=== PATIENT | male | born 1985 | race Hispanic/Latino ===

== ENCOUNTER 2021-09-04 14:07 | Inpatient (IN) | payer SELFPAY ==
[2021-09-04] MEDS ORDERED: INSULIN REGULAR, HUMAN 100 UNITS/1 ML IV ONE ×2 (14:24→20:00)
[2021-09-04] MEDS ORDERED: SODIUM CHLORIDE 0.9% 1000 ML 1,000 ML IV ONE ×2 (14:24)
[2021-09-04 15:15] LABS: BUN/Creatinine Ratio 31; Blood Urea Nitrogen 31 mg/dL (9-20); Calcium 8.8 mg/dL (8.4-10.2); Hemolysis Index 9
[2021-09-04 15:30] LABS: Basophils # (Auto) 0.1 K/mm3 (0.0-0.1); Basophils % (Auto) 0.7 % (0.0-1.8); Eosinophils % (Auto) 0.2 % (0.0-4.3); Lymphocytes # (Auto) 0.9 K/mm3 (1.2-5.4); Lymphocytes % (Auto) 8.8 % (13.4-35.0); Mean Corpuscular HGB Conc 30 % (32-34); Mean Corpuscular Volume 87 fl (84-94); Monocytes # (Auto) 0.7 K/mm3 (0.0-0.8); Monocytes % (Auto) 6.3 % (0.0-7.3); Platelet Count 345 K/mm3 (140-440); Red Blood Count 4.68 M/mm3 (3.65-5.03); Red Cell Distribution Width 15.9 % (13.2-15.2)
[2021-09-04 15:33] LABS: Hematocrit 40.8 % (35.5-45.6); Hemoglobin 12.4 gm/dl (11.8-15.2)
[2021-09-04] MEDS ORDERED: INSULIN REGULAR, HUMAN 100 UNITS in SODIUM CHLORIDE 0.9% 99 ML IV SCH ×2 (20:00→22:00)
--- NOTE | 2021-09-04 20:00 | Emergency Department Report ---
ED General Adult HPI - General Chief complaint: Hyperglycemia Stated complaint: HYPERGLYCEMIA PUI?: No Time Seen by Provider: 09/04/21 14:22 Source: patient, EMS Mode of arrival: Stretcher Limitations: No Limitations - History of Present Illness Initial comments: Chief complaint: Elevated blood sugar HPI: This is a 35-year-old male history of insulin-dependent diabetes, CVA residual left-sided paralysis who presents with elevated blood sugar. He has been between several personal care homes. He has been without insulin therapy for several days. He has been in a new personal half-way for 2 days. He has mild nausea. He is thirsty. He was admitted at outside hospital approximately 2 months ago for left ankle wound infection. He denies any pain or discomfort otherwise. He arrived via EMS. Blood sugar greater than 500 prior to arrival according to EMS. -: Gradual, days(s) (Several days without insulin) Severity scale (0 -10): 0 Consistency: constant Improves with: none Worsens with: none Associated Symptoms: other (Nausea thirst) Treatments Prior to Arrival: other (EMS transport) - Related Data Home Medications Medication Instructions Recorded Confirmed Last Taken Insulin Aspart 09/04/21 Unknown Allergies Allergy/AdvReac Type Severity Reaction Status Date / Time No Known Allergies Allergy Unverified 09/04/21 16:37 ED Review of Systems ROS: Stated complaint: HYPERGLYCEMIA Other details as noted in HPI Comment: All other systems reviewed and negative Constitutional: denies: chills, fever, malaise Respiratory: denies: cough, shortness of breath Cardiovascular: denies: chest pain Gastrointestinal: vomiting. denies: abdominal pain Skin: lesions (left ankle ulcer) ED Past Medical Hx - Past Medical History Previous Medical History?: Yes Hx CVA: Yes Hx Diabetes: Yes - Surgical History Past Surgical History?: Yes Additional Surgical History: Ankle surgery - Social History Smoking Status: Former Smoker Substance Use Type: None - Medications Home Medications: Home Medications Medication Instructions Recorded Confirmed Last Taken Type Insulin Aspart 09/04/21 Unknown History ED Physical Exam - General Limitations: No Limitations General appearance: alert, other (Kussmaul respirations) - Head Head exam: Present: atraumatic, normocephalic - Eye Eye exam: Present: normal appearance - ENT ENT exam: Present: mucous membranes moist - Neck Neck exam: Present: normal inspection, full ROM - Respiratory Respiratory exam: Present: normal lung sounds bilaterally, other (Kussmaul respirations). Absent: wheezes, rales, rhonchi - Cardiovascular Cardiovascular Exam: Present: regular rate, normal rhythm, normal heart sounds. Absent: systolic murmur, diastolic murmur, rubs, gallop - GI/Abdominal GI/Abdominal exam: Present: soft, normal bowel sounds. Absent: distended, tenderness, guarding, rebound - Rectal Rectal exam: Present: deferred - Extremities Exam Extremities exam: Present: normal inspection - Neurological Exam Neurological exam: Present: alert, oriented X3 - Psychiatric Psychiatric exam: Present: depressed, flat affect - Skin Skin exam: Present: warm, dry, intact, pallor, other (Bandage left ankle) ED Course Vital Signs 09/04/21 09/04/21 09/04/21 14:22 14:31 14:45 Temperature 98.2 F Pulse Rate 90 86 83 Respiratory 17 16 16 Rate Blood Pressure 114/68 120/70 Blood Pressure 120/70 [Left] O2 Sat by Pulse 100 99 Oximetry 09/04/21 09/04/21 09/04/21 15:00 15:15 15:31 Temperature Pulse Rate 85 81 Respiratory 15 15 15 Rate Blood Pressure 120/70 121/68 Blood Pressure [Left] O2 Sat by Pulse 99 100 100 Oximetry 09/04/21 09/04/21 09/04/21 15:45 16:01 16:15 Temperature Pulse Rate 103 H 86 Respiratory 14 16 14 Rate Blood Pressure 121/69 122/72 105/59 Blood Pressure [Left] O2 Sat by Pulse 100 100 100 Oximetry 09/04/21 09/04/21 09/04/21 16:31 16:45 16:49 Temperature Pulse Rate 94 H 91 H Respiratory 16 16 16 Rate Blood Pressure 97/61 119/73 Blood Pressure [Left] O2 Sat by Pulse 100 99 99 Oximetry 09/04/21 09/04/21 09/04/21 17:01 17:15 17:31 Temperature Pulse Rate 86 84 94 H Respiratory 14 14 17 Rate Blood Pressure 116/66 115/59 116/68 Blood Pressure [Left] O2 Sat by Pulse 100 99 99 Oximetry 09/04/21 09/04/21 09/04/21 17:45 18:01 18:15 Temperature Pulse Rate 86 87 93 H Respiratory 16 14 18 Rate Blood Pressure 106/77 110/69 123/69 Blood Pressure [Left] O2 Sat by Pulse 99 99 99 Oximetry ED Medical Decision Making - Lab Data Result diagrams: 09/04/21 14:44 09/04/21 14:44 - Medical Decision Making Diabetic ketoacidosis due to medication noncompliance no evidence of infection or cardiac insult: Acute kidney injury with hyperkalemia. Hyperkalemia will be addressed with insulin therapy. Normal saline 2 L bolus. Patient received regular insulin IV. Also exam fluid in order. Critical Care Time: Yes Critical care time in (mins) excluding proc time.: 40 Critical care attestation.: If time is entered above; I have spent that time in minutes in the direct care of this critically ill patient, excluding procedure time. 40 minutes of critical care time excluding procedures were used in the care of the patient. I came immediately to the bedside upon patient's arrival. I obtained history from EMS at the bedside. I discussed treatment plan with the nursing team members. I reviewed electronic record. Patient required multiple interventions and reassessments. ED Disposition Clinical Impression: Diabetic ketoacidosis Disposition: ADMITTED INPATIENT Is pt being admited?: Yes Does the pt Need Aspirin: No Condition: Critical
[2021-09-04] MEDS ORDERED: MORPHINE 2 MG/1 ML INJ IV PRN (20:49)
[2021-09-04] MEDS ORDERED: HYDROmorphone 1 MG/1 ML INJ IV PRN (20:49)
[2021-09-04] MEDS ORDERED: ONDANSETRON 4 MG/2 ML INJ IV PRN (20:49)
[2021-09-04] MEDS ORDERED: PROMETHAZINE 25 MG RECT SUPP PR PRN (20:49)
[2021-09-04] MEDS ORDERED: ACETAMINOPHEN 325 MG TAB PO PRN (20:49)
[2021-09-04] MEDS ORDERED: METOCLOPRAMIDE 10 MG/2 ML INJ IV PRN (20:49)
[2021-09-04] MEDS ORDERED: DEXTROSE 50% IN WATER (25GM) 50 ML SYRINGE IV PRN (21:01)
--- NOTE | 2021-09-04 21:11 | History and Physical Report ---
History of Present Illness Date of examination: 09/04/21 Date of admission: 09/04/21 16:47 Chief complaint: High blood glucose levels History of present illness: HPI: This is a 35-year-old male history of insulin-dependent diabetes, CVA residual left-sided paralysis who presents with elevated blood sugar. He has been between several personal care homes. He has been without insulin therapy for several days. He has been in a new personal assisted for 2 days. He has mild nausea. He is thirsty. He was admitted at outside hospital approximately 2 months ago for left ankle wound infection. He denies any pain or discomfort otherwise. He arrived via EMS. Blood sugar greater than 500 prior to arrival according to EMS. -: Gradual, days(s) (Several days without insulin) Severity scale (0 -10): 0 Consistency: constant Improves with: none Worsens with: none Associated Symptoms: other (Nausea thirst) Treatments Prior to Arrival: other (EMS transport) - Related Data Home Medications Medication Instructions Recorded Confirmed Last Taken Insulin Aspart 09/04/21 Unknown Allergies Allergy/AdvReac Type Severity Reaction Status Date / Time No Known Allergies Allergy Unverified 09/04/21 16:37 - Past Medical History Previous Medical History?: Yes Hx CVA: Yes Hx Diabetes: Yes - Surgical History Past Surgical History?: Yes Additional Surgical History: Ankle surgery - Social History Smoking Status: Former Smoker Substance Use Type: None - Medications Home Medications: Home Medications Medication Instructions Recorded Confirmed Last Taken Type Insulin Aspart 09/04/21 Unknown History Review of Systems ROS: Stated complaint: HYPERGLYCEMIA Other details as noted in HPI Comment: All other systems reviewed and negative Constitutional: denies: chills, fever, malaise Respiratory: denies: cough, shortness of breath Cardiovascular: denies: chest pain Gastrointestinal: vomiting. denies: abdominal pain Skin: lesions (left ankle ulcer) Medications and Allergies Allergies Allergy/AdvReac Type Severity Reaction Status Date / Time No Known Allergies Allergy Unverified 09/04/21 16:37 Home Medications Medication Instructions Recorded Confirmed Last Taken Type Insulin Aspart 10 unit 09/04/21 09/03/21 17:00 History Active Meds: Active Medications Insulin Human Regular 100 (units/ Sodium Chloride) 100 mls @ 7 mls/hr IV TITR GIL; Protocol Last Admin: 09/04/21 20:34 Dose: 8 units/hr, 8 mls/hr Documented by: Exam - Constitutional Vitals: Temp Pulse Resp BP Pulse Ox 98.2 F 93 H 18 123/69 99 09/04/21 14:31 09/04/21 18:15 09/04/21 18:15 09/04/21 18:15 09/04/21 18:15 General appearance: Present: no acute distress, well-nourished - EENT Eyes: Present: PERRL ENT: hearing intact, clear oral mucosa - Neck Neck: Present: supple, normal ROM - Respiratory Respiratory effort: normal Respiratory: bilateral: CTA - Cardiovascular Heart Sounds: Present: S1 & S2. Absent: rub, click - Extremities Extremities: pulses symmetrical, No edema Peripheral Pulses: within normal limits - Abdominal General gastrointestinal: Present: soft, non-tender, non-distended, normal bowel sounds Male genitourinary: Present: normal - Integumentary Integumentary: Present: clear, warm, dry - Musculoskeletal Musculoskeletal: gait normal, strength equal bilaterally - Psychiatric Psychiatric: appropriate mood/affect, intact judgment & insight - Neurologic Neurologic: CNII-XII intact, moves all extremities Results - Labs CBC & Chem 7: 09/05/21 05:04 09/06/21 08:33 Labs: Laboratory Last Values WBC 10.5 K/mm3 (4.5-11.0) 09/04/21 14:44 RBC 4.68 M/mm3 (3.65-5.03) 09/04/21 14:44 Hgb 12.4 gm/dl (11.8-15.2) 09/04/21 14:44 Hct 40.8 % (35.5-45.6) 09/04/21 14:44 MCV 87 fl (84-94) 09/04/21 14:44 MCH 27 pg (28-32) L 09/04/21 14:44 MCHC 30 % (32-34) L 09/04/21 14:44 RDW 15.9 % (13.2-15.2) H 09/04/21 14:44 Plt Count 345 K/mm3 (140-440) 09/04/21 14:44 Lymph % (Auto) 8.8 % (13.4-35.0) L 09/04/21 14:44 Price % (Auto) 6.3 % (0.0-7.3) 09/04/21 14:44 Eos % (Auto) 0.2 % (0.0-4.3) 09/04/21 14:44 Baso % (Auto) 0.7 % (0.0-1.8) 09/04/21 14:44 Lymph # (Auto) 0.9 K/mm3 (1.2-5.4) L 09/04/21 14:44 Price # (Auto) 0.7 K/mm3 (0.0-0.8) 09/04/21 14:44 Eos # (Auto) 0.0 K/mm3 (0.0-0.4) 09/04/21 14:44 Baso # (Auto) 0.1 K/mm3 (0.0-0.1) 09/04/21 14:44 Seg Neutrophils % 84.0 % (40.0-70.0) H 09/04/21 14:44 Seg Neutrophils # 8.8 K/mm3 (1.8-7.7) H 09/04/21 14:44 VBG pH 7.091 (7.320-7.420) L* 09/04/21 14:44 Sodium 125 mmol/L (137-145) L 09/04/21 14:44 Potassium 7.2 mmol/L (3.6-5.0) H* 09/04/21 14:44 Chloride 88.2 mmol/L (98-107) L 09/04/21 14:44 Carbon Dioxide 7 mmol/L (22-30) L* 09/04/21 14:44 Anion Gap 37 mmol/L 09/04/21 14:44 BUN 31 mg/dL (9-20) H 09/04/21 14:44 Creatinine 1.0 mg/dL (0.8-1.3) 09/04/21 14:44 Estimated GFR > 60 ml/min 09/04/21 14:44 BUN/Creatinine Ratio 31 % 09/04/21 14:44 Glucose 701 mg/dL (75-100) H* 09/04/21 14:44 POC Glucose 526 mg/dL (70-105) H 09/04/21 20:33 Calcium 8.8 mg/dL (8.4-10.2) 09/04/21 14:44 Phosphorus 4.80 mg/dL (2.5-4.5) H 09/04/21 14:44 Magnesium 2.10 mg/dL (1.7-2.3) 09/04/21 14:44 Short CBC 09/04/21 09/05/21 Range/Units 14:44 05:04 WBC 10.5 6.7 (4.5-11.0) K/mm3 Hgb 12.4 11.8 (11.8-15.2) gm/dl Hct 40.8 36.8 (35.5-45.6) % Plt Count 345 374 (140-440) K/mm3 BMP 09/04/21 09/04/21 09/05/21 14:44 23:25 05:04 Sodium 125 L 134 L D 136 L Potassium 7.2 H* 5.0 D 4.9 Chloride 88.2 L 100.7 106.3 Carbon Dioxide 7 L* 6 L* 16 L D BUN 31 H 29 H 21 H Creatinine 1.0 0.9 0.8 Glucose 701 H* 374 H 225 H Calcium 8.8 9.0 8.9 Liver Function 09/05/21 Range/Units 05:04 Total Bilirubin 0.20 (0.1-1.2) mg/dL AST 48 H (5-40) units/L ALT 159 H (7-56) units/L Alkaline Phosphatase 164 H (35-129) units/L Albumin 4.2 (3.9-5) g/dL Assessment and Plan Assessment and plan: The high probability OF a clinically significant sudden or life-threatening d eterioration of the cardiorespiratory system and endocrine system required my full and direct attention, intervention and postoperative management. The aggregate medical care time was 40 minutes. The time is in addition to time spent performing reported procedures but includes the followin: Data review and interpretation 2: Patient assessment and monitoring of vital signs 3: Documentation 4:: Medication orders and management Advance Directives: Yes (Full code) VTE prophylaxis?: Chemical Plan of care discussed with patient/family: Yes - Patient Problems (1) Diabetic ketoacidosis Current Visit: Yes Status: Acute Qualifiers: Diabetes mellitus type: other specified (including NEIL) Plan to address problem: DKA protocol IV insulin IV fluids Education about diabetes and management (2) Metabolic acidosis Current Visit: Yes Status: Acute Plan to address problem: IV fluids Elevated bicarb as necessary (3) Hyperkalemia Current Visit: Yes Status: Acute Plan to address problem: IV insulin for now Calcium gluconate IV IV insulin should correct the potassium levels (4) DVT prophylaxis Current Visit: Yes Status: Acute Plan to address problem: On heparin heparin and GI prophylaxis
[2021-09-04] MEDS ORDERED: D5W/0.45% NACL/KCL 20 MEQ 20 MEQ/1,000 ML BAG IV SCH (22:00)
[2021-09-04] MEDS ORDERED: POTASSIUM CHLORIDE 10 MEQ 10 MEQ/100 ML BAG IV SCH (22:00)
[2021-09-04] MEDS: FAMOTIDINE 20 MG/2 ML INJ IV SCH (22:29)
[2021-09-04] MEDS: HEPARIN 5,000 UNIT/1 ML VIAL SUB-Q SCH (22:29)
[2021-09-04 23:59] LABS: BUN/Creatinine Ratio 32; Blood Urea Nitrogen 29 mg/dL (9-20); Hemolysis Index 2
[2021-09-05] MEDS ORDERED: SODIUM CHLORIDE 0.9% 1000 ML 1,000 ML IV SCH (00:45)
[2021-09-05] MEDS ORDERED: SODIUM BICARB 8.4% 50 MEQ/50 ML SYRINGE IV ONE (00:45)
[2021-09-05 05:22] LABS: Basophils % (Auto) 0.3 % (0.0-1.8); Eosinophils % (Auto) 0.3 % (0.0-4.3); Hematocrit 36.8 % (35.5-45.6); Hemoglobin 11.8 gm/dl (11.8-15.2); Lymphocytes # (Auto) 1.9 K/mm3 (1.2-5.4); Lymphocytes % (Auto) 28.3 % (13.4-35.0); Mean Corpuscular HGB Conc 32 % (32-34); Mean Corpuscular Volume 80 fl (84-94); Monocytes # (Auto) 0.5 K/mm3 (0.0-0.8); Monocytes % (Auto) 7.3 % (0.0-7.3); Platelet Count 374 K/mm3 (140-440); Red Blood Count 4.62 M/mm3 (3.65-5.03); Red Cell Distribution Width 14.9 % (13.2-15.2)
[2021-09-05 05:44] LABS: Alanine Aminotransferase 159 units/L (7-56); Albumin 4.2 g/dL (3.9-5); BUN/Creatinine Ratio 26; Blood Urea Nitrogen 21 mg/dL (9-20); Calcium 8.9 mg/dL (8.4-10.2); Hemolysis Index 2
--- NOTE | 2021-09-05 10:14 | Progress Note ---
Assessment and Plan - Patient Problems (1) Diabetic ketoacidosis Current Visit: Yes Status: Acute Qualifiers: Diabetes mellitus type: other specified (including NEIL) Plan to address problem: DKA protocol IV insulin IV fluids Education about diabetes and management Patient started on Novolin 70/30 at 25 units twice a day (2) Metabolic acidosis Current Visit: Yes Status: Acute Plan to address problem: IV fluids Elevated bicarb as necessary (3) Hyperkalemia Current Visit: Yes Status: Acute Plan to address problem: IV insulin for now Calcium gluconate IV IV insulin should correct the potassium levels (4) DVT prophylaxis Current Visit: Yes Status: Acute Plan to address problem: On heparin heparin and GI prophylaxis Subjective Date of service: 09/05/21 Principal diagnosis: DKA Interval history: Patient admitted for DKA Glucose levels are improved Patient downgraded to medical floor Objective - Constitutional Vitals: Vital Signs - 12hr 09/04/21 09/04/21 09/04/21 22:15 22:31 22:45 Pulse Rate 92 H 85 85 Respiratory 15 15 14 Rate Blood Pressure 105/67 105/67 105/67 O2 Sat by Pulse 100 100 100 Oximetry 09/04/21 09/04/21 09/04/21 23:01 23:15 23:30 Pulse Rate 83 93 H 85 Respiratory 13 17 15 Rate Blood Pressure 97/60 105/67 105/67 O2 Sat by Pulse 100 100 100 Oximetry 09/04/21 09/05/21 09/05/21 23:45 00:01 00:15 Pulse Rate 81 80 77 Respiratory 13 14 14 Rate Blood Pressure 97/60 100/58 100/58 O2 Sat by Pulse 100 100 100 Oximetry 09/05/21 09/05/21 09/05/21 00:31 00:45 01:01 Pulse Rate 79 79 80 Respiratory 15 15 15 Rate Blood Pressure 100/58 100/58 103/64 O2 Sat by Pulse 100 100 100 Oximetry 09/05/21 09/05/21 09/05/21 01:15 01:31 01:45 Pulse Rate 78 89 80 Respiratory 14 18 14 Rate Blood Pressure 103/64 103/64 103/64 O2 Sat by Pulse 100 100 100 Oximetry 09/05/21 09/05/21 09/05/21 02:01 02:15 02:31 Pulse Rate 81 80 85 Respiratory 13 15 15 Rate Blood Pressure 107/70 107/70 107/70 O2 Sat by Pulse 100 100 99 Oximetry 09/05/21 09/05/21 09/05/21 02:45 03:01 03:15 Pulse Rate 80 80 78 Respiratory 14 16 14 Rate Blood Pressure 107/70 108/68 107/70 O2 Sat by Pulse 100 99 99 Oximetry 09/05/21 09/05/21 09/05/21 03:31 03:45 04:01 Pulse Rate 79 91 H 79 Respiratory 15 13 15 Rate Blood Pressure 107/70 107/70 104/68 O2 Sat by Pulse 99 Oximetry 09/05/21 09/05/21 09/05/21 04:15 04:31 04:45 Pulse Rate 77 81 79 Respiratory 15 15 15 Rate Blood Pressure 104/68 104/68 104/68 O2 Sat by Pulse Oximetry 09/05/21 09/05/21 09/05/21 05:01 05:15 05:31 Pulse Rate 89 79 79 Respiratory 13 15 15 Rate Blood Pressure 104/68 104/68 104/68 O2 Sat by Pulse 100 100 Oximetry 09/05/21 09/05/21 09/05/21 05:45 06:01 06:15 Pulse Rate 79 84 78 Respiratory 15 15 15 Rate Blood Pressure 104/68 107/68 107/68 O2 Sat by Pulse 100 100 100 Oximetry 09/05/21 09/05/21 09/05/21 06:31 06:45 07:01 Pulse Rate 79 76 75 Respiratory 15 14 14 Rate Blood Pressure 107/68 107/68 107/68 O2 Sat by Pulse 100 100 100 Oximetry 09/05/21 07:15 Pulse Rate 75 Respiratory 14 Rate Blood Pressure 107/68 O2 Sat by Pulse 100 Oximetry General appearance: Present: no acute distress, well-nourished - EENT Eyes: PERRL, EOM intact ENT: hearing intact, clear oral mucosa Ears: bilateral: normal - Neck Neck: supple, normal ROM - Respiratory Respiratory effort: normal Respiratory: bilateral: CTA - Breasts Breasts: normal - Cardiovascular Heart rate: 78 Rhythm: regular Heart Sounds: Present: S1 & S2. Absent: gallop, rub Extremities: pulses intact, No edema, normal color, Full ROM - Gastrointestinal General gastrointestinal: Present: soft, non-tender, non-distended, normal bowel sounds - Genitourinary Male genitourinary: normal - Integumentary Integumentary: clear, warm, dry - Musculoskeletal Musculoskeletal: 1, strength equal bilaterally - Neurologic Neurologic: moves all extremities - Psychiatric Psychiatric: memory intact, appropriate mood/affect, intact judgment & insight - Labs CBC & Chem 7: 09/05/21 05:04 09/06/21 08:33 Labs: Abnormal lab results 09/04/21 09/04/21 09/04/21 Range/Units 14:24 14:44 14:44 MCV (84-94) fl MCH 27 L (28-32) pg MCHC 30 L (32-34) % RDW 15.9 H (13.2-15.2) % Lymph % (Auto) 8.8 L (13.4-35.0) % Lymph # (Auto) 0.9 L (1.2-5.4) K/mm3 Seg Neutrophils % 84.0 H (40.0-70.0) % Seg Neutrophils # 8.8 H (1.8-7.7) K/mm3 VBG pH (7.320-7.420) Sodium 125 L (137-145) mmol/L Potassium 7.2 H* (3.6-5.0) mmol/L Chloride 88.2 L (98-107) mmol/L Carbon Dioxide 7 L* (22-30) mmol/L BUN 31 H (9-20) mg/dL Glucose 701 H* (75-100) mg/dL POC Glucose 572 H (70-105) mg/dL Hemoglobin A1c (4-6) % Phosphorus (2.5-4.5) mg/dL AST (5-40) units/L ALT (7-56) units/L Alkaline Phosphatase (35-129) units/L 09/04/21 09/04/21 09/04/21 Range/Units 14:44 14:44 20:03 MCV (84-94) fl MCH (28-32) pg MCHC (32-34) % RDW (13.2-15.2) % Lymph % (Auto) (13.4-35.0) % Lymph # (Auto) (1.2-5.4) K/mm3 Seg Neutrophils % (40.0-70.0) % Seg Neutrophils # (1.8-7.7) K/mm3 VBG pH 7.091 L* (7.320-7.420) Sodium (137-145) mmol/L Potassium (3.6-5.0) mmol/L Chloride (98-107) mmol/L Carbon Dioxide (22-30) mmol/L BUN (9-20) mg/dL Glucose (75-100) mg/dL POC Glucose 535 H (70-105) mg/dL Hemoglobin A1c (4-6) % Phosphorus 4.80 H (2.5-4.5) mg/dL AST (5-40) units/L ALT (7-56) units/L Alkaline Phosphatase (35-129) units/L 09/04/21 09/04/21 09/04/21 Range/Units 20:33 22:02 23:25 MCV (84-94) fl MCH (28-32) pg MCHC (32-34) % RDW (13.2-15.2) % Lymph % (Auto) (13.4-35.0) % Lymph # (Auto) (1.2-5.4) K/mm3 Seg Neutrophils % (40.0-70.0) % Seg Neutrophils # (1.8-7.7) K/mm3 VBG pH (7.320-7.420) Sodium 134 L D (137-145) mmol/L Potassium (3.6-5.0) mmol/L Chloride (98-107) mmol/L Carbon Dioxide 6 L* (22-30) mmol/L BUN 29 H (9-20) mg/dL Glucose 374 H (75-100) mg/dL POC Glucose 526 H 381 H (70-105) mg/dL Hemoglobin A1c (4-6) % Phosphorus (2.5-4.5) mg/dL AST (5-40) units/L ALT (7-56) units/L Alkaline Phosphatase (35-129) units/L 09/05/21 09/05/21 09/05/21 Range/Units 00:01 01:16 02:23 MCV (84-94) fl MCH (28-32) pg MCHC (32-34) % RDW (13.2-15.2) % Lymph % (Auto) (13.4-35.0) % Lymph # (Auto) (1.2-5.4) K/mm3 Seg Neutrophils % (40.0-70.0) % Seg Neutrophils # (1.8-7.7) K/mm3 VBG pH (7.320-7.420) Sodium (137-145) mmol/L Potassium (3.6-5.0) mmol/L Chloride (98-107) mmol/L Carbon Dioxide (22-30) mmol/L BUN (9-20) mg/dL Glucose (75-100) mg/dL POC Glucose 350 H 291 H 234 H (70-105) mg/dL Hemoglobin A1c (4-6) % Phosphorus (2.5-4.5) mg/dL AST (5-40) units/L ALT (7-56) units/L Alkaline Phosphatase (35-129) units/L 09/05/21 09/05/21 09/05/21 Range/Units 03:41 05:02 05:04 MCV 80 L (84-94) fl MCH 26 L (28-32) pg MCHC (32-34) % RDW (13.2-15.2) % Lymph % (Auto) (13.4-35.0) % Lymph # (Auto) (1.2-5.4) K/mm3 Seg Neutrophils % (40.0-70.0) % Seg Neutrophils # (1.8-7.7) K/mm3 VBG pH (7.320-7.420) Sodium (137-145) mmol/L Potassium (3.6-5.0) mmol/L Chloride (98-107) mmol/L Carbon Dioxide (22-30) mmol/L BUN (9-20) mg/dL Glucose (75-100) mg/dL POC Glucose 237 H 198 H (70-105) mg/dL Hemoglobin A1c (4-6) % Phosphorus (2.5-4.5) mg/dL AST (5-40) units/L ALT (7-56) units/L Alkaline Phosphatase (35-129) units/L 09/05/21 09/05/21 09/05/21 Range/Units 05:04 05:04 06:02 MCV (84-94) fl MCH (28-32) pg MCHC (32-34) % RDW (13.2-15.2) % Lymph % (Auto) (13.4-35.0) % Lymph # (Auto) (1.2-5.4) K/mm3 Seg Neutrophils % (40.0-70.0) % Seg Neutrophils # (1.8-7.7) K/mm3 VBG pH (7.320-7.420) Sodium 136 L (137-145) mmol/L Potassium (3.6-5.0) mmol/L Chloride (98-107) mmol/L Carbon Dioxide 16 L D (22-30) mmol/L BUN 21 H (9-20) mg/dL Glucose 225 H (75-100) mg/dL POC Glucose 188 H (70-105) mg/dL Hemoglobin A1c 11.1 H (4-6) % Phosphorus (2.5-4.5) mg/dL AST 48 H (5-40) units/L ALT 159 H (7-56) units/L Alkaline Phosphatase 164 H (35-129) units/L 09/05/21 09/05/21 Range/Units 06:58 09:54 MCV (84-94) fl MCH (28-32) pg MCHC (32-34) % RDW (13.2-15.2) % Lymph % (Auto) (13.4-35.0) % Lymph # (Auto) (1.2-5.4) K/mm3 Seg Neutrophils % (40.0-70.0) % Seg Neutrophils # (1.8-7.7) K/mm3 VBG pH (7.320-7.420) Sodium (137-145) mmol/L Potassium (3.6-5.0) mmol/L Chloride (98-107) mmol/L Carbon Dioxide (22-30) mmol/L BUN (9-20) mg/dL Glucose (75-100) mg/dL POC Glucose 169 H 121 H (70-105) mg/dL Hemoglobin A1c (4-6) % Phosphorus (2.5-4.5) mg/dL AST (5-40) units/L ALT (7-56) units/L Alkaline Phosphatase (35-129) units/L
[2021-09-05] MEDS: HEPARIN 5,000 UNIT/1 ML VIAL SUB-Q SCH (10:43)
[2021-09-05] MEDS: FAMOTIDINE 20 MG/2 ML INJ IV SCH ×2 (10:44→22:00)
--- NOTE | 2021-09-05 12:30 | Event Note ---
Date: 09/05/21 Anion Gap is closed, stable for downgrade to floor. No current need for ICU.
[2021-09-05] MEDS ORDERED: DEXTROSE 50% IN WATER (25GM) 50 ML SYRINGE IV PRN (19:07)
[2021-09-06] MEDS: INSULIN LISPRO 100 UNIT/ML SUB-Q SCH ×6 (02:50→21:51)
[2021-09-06] MEDS ORDERED: INSULIN LISPRO 100 UNIT/ML SUB-Q ONE (09:45)
[2021-09-06] MEDS: HEPARIN 5,000 UNIT/1 ML VIAL SUB-Q SCH ×2 (10:00→21:43)
[2021-09-06] MEDS: FAMOTIDINE 20 MG/2 ML INJ IV SCH (10:06)
[2021-09-06] MEDS ORDERED: PNEUMOCOCCAL 23 Valent 0.5 ML VIAL IM ONE (12:00)
[2021-09-06] MEDS ORDERED: PANTOPRAZOLE 40 MG INJ IV SCH (13:00)
[2021-09-06] MEDS: INSULIN NPH/REGULAR 70/30 INJ SUB-Q SCH ×2 (13:00→17:00)
--- NOTE | 2021-09-06 14:15 | Progress Note ---
Assessment and Plan - Patient Problems (1) Acute gastritis Current Visit: Yes Status: Acute Qualifiers: Gastritis bleeding: with bleeding Plan to address problem: Patient started on IV Protonix GI consult requested May need EGD (2) Diabetic ketoacidosis Current Visit: Yes Status: Acute Qualifiers: Diabetes mellitus type: other specified (including NEIL) Plan to address problem: DKA protocol IV insulin IV fluids Education about diabetes and management Patient started on Novolin 70/30 at 25 units twice a day (3) Metabolic acidosis Current Visit: Yes Status: Acute Plan to address problem: IV fluids Elevated bicarb as necessary (4) Hyperkalemia Current Visit: Yes Status: Acute Plan to address problem: Hyperkalemia corrected (5) DVT prophylaxis Current Visit: Yes Status: Acute Plan to address problem: On heparin and GI prophylaxis Subjective Date of service: 09/06/21 Principal diagnosis: DKA Interval history: Patient admitted for DKA Glucose levels are improved Patient downgraded to medical floor 09/06/2021 Patient is coffee-ground emesis today Patient started on IV Protonix GI consult requested Objective - Constitutional Vitals: Vital Signs - 12hr 09/06/21 09/06/21 09/06/21 04:09 05:49 11:00 Temperature 97.4 F L 98 F Pulse Rate 106 H 106 H Respiratory 18 18 Rate Blood Pressure 109/70 Blood Pressure 106/67 [Left] O2 Sat by Pulse 99 99 Oximetry General appearance: Present: no acute distress, well-nourished - EENT Eyes: PERRL, EOM intact ENT: hearing intact, clear oral mucosa Ears: bilateral: normal - Neck Neck: supple, normal ROM - Respiratory Respiratory effort: normal Respiratory: bilateral: CTA - Breasts Breasts: normal - Cardiovascular Heart rate: 78 Rhythm: regular Heart Sounds: Present: S1 & S2. Absent: gallop, rub Extremities: pulses intact, No edema, normal color, Full ROM - Gastrointestinal General gastrointestinal: Present: soft, non-tender, non-distended, normal bowel sounds - Genitourinary Male genitourinary: normal - Integumentary Integumentary: clear, warm, dry - Musculoskeletal Musculoskeletal: 1, strength equal bilaterally - Neurologic Neurologic: moves all extremities - Psychiatric Psychiatric: memory intact, appropriate mood/affect, intact judgment & insight - Labs CBC & Chem 7: 09/05/21 05:04 09/06/21 08:33 Labs: Abnormal lab results 09/06/21 09/06/21 09/06/21 Range/Units 00:36 07:26 08:33 Glucose 574 H* (75-100) mg/dL POC Glucose 399 H 531 H (70-105) mg/dL 09/06/21 Range/Units 12:05 Glucose (75-100) mg/dL POC Glucose 329 H (70-105) mg/dL
[2021-09-06 16:06] LABS: Hemoglobin 13.2 gm/dl (11.8-15.2)
--- NOTE | 2021-09-06 17:45 | Gastroenterology Consultation ---
History of Present Illness - Reason for Consult Consult date: 09/06/21 CGE/Gastritis Requesting physician: NAUN WATKINS - History of Present Illness The patient is a 35 yo male admitted with DKA out of insulin for a few days. He has a hx of CVA, and lives in a personal correction. He had intractable N/V with coffee grounds on admit, but as the sugar has improved, he has now been able to tolerate clear liquids. There was no hematemesis or melena. His hematocrit is normal. He denies abdominal pain. He has no hx of PUD or previous EGD. He denies excess NSAIDs. Past History Past Medical History: diabetes (Type I), stroke Past Surgical History: No surgical history Social history: other (Lives in personal correction). denies: smoking Family history: other (Not known to patient) Medications and Allergies Allergies Allergy/AdvReac Type Severity Reaction Status Date / Time No Known Allergies Allergy Unverified 09/04/21 16:37 Home Medications Medication Instructions Recorded Confirmed Last Taken Type Insulin Aspart 10 unit 09/04/21 09/03/21 17:00 History Active Meds: Active Medications Acetaminophen (Acetaminophen 325 Mg Tab) 650 mg PO Q4H PRN PRN Reason: Pain MILD(1-3)/Fever >100.5/WARD Dextrose (Dextrose 50% In Water (25gm) 50 Ml Syringe) 50 ml IV Q30MIN PRN; Protocol PRN Reason: Hypoglycemia Heparin Sodium (Porcine) (Heparin 5,000 Unit/1 Ml Vial) 5,000 unit SUB-Q Q12HR GIL Last Admin: 09/06/21 10:00 Dose: 5,000 unit Documented by: Hydromorphone HCl (Hydromorphone 1 Mg/1 Ml Inj) 0.5 mg IV Q3H PRN PRN Reason: Pain , Severe (7-10) Sodium Chloride (Nacl 0.9% 1000 Ml) 1,000 mls @ 75 mls/hr IV DIRECT GIL Insulin Human Isoph/Insulin Regular (Insulin Nph/Regular 70/30 Inj) 30 unit SUB-Q BIDDIAB GIL Stop: 09/12/21 23:59 Last Admin: 09/06/21 13:00 Dose: 30 unit Documented by: Insulin Human Lispro (Insulin Lispro 100 Unit/Ml) 0 unit SUB-Q ACHS GIL; Protocol Last Admin: 09/06/21 11:30 Dose: 6 unit Documented by: Metoclopramide HCl (Metoclopramide 10 Mg/2 Ml Inj) 10 mg IV Q6H PRN PRN Reason: Nausea And Vomiting Morphine Sulfate (Morphine 2 Mg/1 Ml Inj) 2 mg IV Q4H PRN PRN Reason: Pain, Moderate (4-6) Ondansetron HCl (Ondansetron 4 Mg/2 Ml Inj) 4 mg IV Q3H PRN PRN Reason: Nausea And Vomiting Last Admin: 09/06/21 08:04 Dose: 4 mg Documented by: Pantoprazole Sodium (Pantoprazole 40 Mg Inj) 40 mg IV BID [facility] Last Admin: 09/06/21 13:00 Dose: 40 mg Documented by: Promethazine HCl (Promethazine 25 Mg Rect Supp) 25 mg SC Q6H PRN PRN Reason: N/V IF NPO AND NO IV ACCESS Sodium Chloride (Sodium Chloride 0.9% 10 Ml Flush Syringe) 10 ml IV BID [facility] Last Admin: 09/06/21 10:06 Dose: 10 ml Documented by: Sodium Chloride (Sodium Chloride 0.9% 10 Ml Flush Syringe) 10 ml IV PRN PRN PRN Reason: LINE FLUSH I HAVE REVIEWED AND RECONCILED MEDICATIONS Review of Systems - Review of Systems All systems: negative (as noted in the HPI) Exam - Constitutional Vital Signs: Temp Pulse Resp BP Pulse Ox 98 F 106 H 18 106/67 100 09/06/21 11:00 09/06/21 11:00 09/06/21 11:00 09/06/21 11:00 09/06/21 10:00 General appearance: no acute distress - EENT Eyes: PERRL, EOM intact ENT: hearing intact, clear oral mucosa, no thrush - Neck Neck: supple, normal ROM - Respiratory Respiratory effort: normal Respiratory: bilateral: CTA - Cardiovascular Rhythm: regular Heart Sounds: Present: S1 & S2 Extremities: no ischemia, No edema - Gastrointestinal General gastrointestinal: Present: soft, non-tender, non-distended - Integumentary Integumentary: Present: clear, warm, dry (Multiple tattoos) - Neurologic Neurological: alert and oriented x3 - Labs CBC & Chem 7: 09/06/21 15:39 09/06/21 08:33 Lab Results: Laboratory Results - last 24 hr 09/06/21 09/06/21 09/06/21 00:36 07:26 08:33 Hgb Hct Glucose 574 H* POC Glucose 399 H 531 H 09/06/21 09/06/21 09/06/21 12:05 15:37 15:39 Hgb 13.2 Hct 40.0 Glucose POC Glucose 329 H 152 H Assessment and Plan - Patient Problems (1) Coffee ground emesis Current Visit: Yes Status: Acute Plan to address problem: - The patient appears to have had acute gastritis with vomiting related to his DKA. - Since there is no melena nor hematemesis, and his hematocrit is normal, no indication for an EGD. - Will advance to full liquids, and start oral protonix. - If the N/V persists, I would suspect diabetic gastroparesis, and an emptying s tudy could be arranged. - We will sign off; please call if needed.
[2021-09-07 00:39] LABS: Hematocrit 35.5 % (35.5-45.6); Hemoglobin 12.1 gm/dl (11.8-15.2)
[2021-09-07] MEDS: SODIUM CHLORIDE 0.9% 1000 ML 1,000 ML IV SCH ×2 (02:27→17:42)
[2021-09-07 05:33] LABS: Basophils # (Auto) 0.1 K/mm3 (0.0-0.1); Basophils % (Auto) 1.1 % (0.0-1.8); Eosinophils % (Auto) 0.2 % (0.0-4.3); Hematocrit 36.3 % (35.5-45.6); Hemoglobin 12.3 gm/dl (11.8-15.2); Lymphocytes # (Auto) 1.5 K/mm3 (1.2-5.4); Lymphocytes % (Auto) 27.9 % (13.4-35.0); Mean Corpuscular HGB Conc 34 % (32-34); Mean Corpuscular Volume 79 fl (84-94); Monocytes # (Auto) 0.5 K/mm3 (0.0-0.8); Monocytes % (Auto) 9.8 % (0.0-7.3); Platelet Count 325 K/mm3 (140-440); Red Blood Count 4.58 M/mm3 (3.65-5.03); Red Cell Distribution Width 15.6 % (13.2-15.2)
[2021-09-07 05:48] LABS: Alanine Aminotransferase 79 units/L (7-56); BUN/Creatinine Ratio 24; Blood Urea Nitrogen 19 mg/dL (9-20); Calcium 9.2 mg/dL (8.4-10.2); Hemolysis Index 13
[2021-09-07] MEDS: PANTOPRAZOLE 40 MG TAB PO SCH (07:30)
[2021-09-07] MEDS: INSULIN LISPRO 100 UNIT/ML SUB-Q SCH ×4 (07:30→21:42)
[2021-09-07] MEDS: INSULIN NPH/REGULAR 70/30 INJ SUB-Q SCH ×2 (08:00→17:43)
[2021-09-07] MEDS: HEPARIN 5,000 UNIT/1 ML VIAL SUB-Q SCH ×2 (09:41→21:41)
--- NOTE | 2021-09-07 19:09 | Progress Note ---
Assessment and Plan Assessment and plan: HPI: This is a 35-year-old male history of insulin-dependent diabetes, CVA res idual left-sided paralysis who presents with elevated blood sugar. He has been between several personal care homes. He has been without insulin therapy for several days. He has been in a new personal custodial for 2 days. He has mild nausea. He is thirsty. He was admitted at outside hospital approximately 2 months ago for left ankle wound infection. He denies any pain or discomfort otherwise. He arrived via EMS. Blood sugar greater than 500 prior to arrival according to EMS. 1) type 1 diabetes mellitus diagnosed at age 19, hemoglobin A1c 11.1 Patient ran out of insulin during the transition to a new facility A1c 11.1 indicating improved glycemic control Per patient, takes Lantus 20 and Humalog 10 units AC. (2) Diabetic ketoacidosis, resolved Current Visit: Yes Status: Acute Qualifiers: Diabetes mellitus type: other specified (including NEIL) Plan to address problem: DKA resolved, the etiology is noncompliance Education about diabetes and management Patient started on Novolin 70/30 at 25 units twice a day Continue to optimize glycemic control (3) chronic right hemiplegia, CVA in 11/2019 Nonambulatory (4) chronic decubitus left foot ulcer, stage II/III X-ray showed no definitive osteomyelitis Wound care ordered (5) DVT prophylaxis Current Visit: Yes Status: Acute Plan to address problem: On heparin and GI prophylaxis Disposition: Case management consulted for disposition as patient is not sure if he can return to his assisted living facility. Discussed with the patient and transplant case manager History Interval history: DKA resolved. Vital signs stable. Glycemic control is acceptable. Tolerating diet. No complaints. Hospitalist Physical - Constitutional Vitals: Temp Pulse Resp BP Pulse Ox 98.7 F 81 18 110/66 98 09/07/21 16:29 09/07/21 16:29 09/07/21 16:29 09/07/21 16:29 09/07/21 16:29 General appearance: Present: no acute distress, well-nourished - EENT Eyes: Present: PERRL, EOM intact ENT: hearing intact, clear oral mucosa - Neck Neck: Present: supple - Respiratory Respiratory effort: normal Respiratory: bilateral: CTA - Cardiovascular Rhythm: regular - Extremities Extremities: No edema Extremity abnormal: other (Stage III 2/3 chronic decubitus ulcer over the lateral margin of left foot. Minimal drainage.) - Abdominal General gastrointestinal: soft, non-tender, non-distended, normal bowel sounds - Integumentary Integumentary: Absent: rash - Psychiatric Psychiatric: other (Flat affect) - Neurologic Neurologic: other (Chronic left hemiplegia, alert and oriented, normal speech and comprehension) Results - Labs CBC & Chem 7: 09/07/21 04:50 09/07/21 04:50 Labs: Laboratory Last Values WBC 5.6 K/mm3 (4.5-11.0) 09/07/21 04:50 RBC 4.58 M/mm3 (3.65-5.03) 09/07/21 04:50 Hgb 12.3 gm/dl (11.8-15.2) 09/07/21 04:50 Hct 36.3 % (35.5-45.6) 09/07/21 04:50 MCV 79 fl (84-94) L 09/07/21 04:50 MCH 27 pg (28-32) L 09/07/21 04:50 MCHC 34 % (32-34) 09/07/21 04:50 RDW 15.6 % (13.2-15.2) H 09/07/21 04:50 Plt Count 325 K/mm3 (140-440) 09/07/21 04:50 Lymph % (Auto) 27.9 % (13.4-35.0) 09/07/21 04:50 [place] % (Auto) 9.8 % (0.0-7.3) H 09/07/21 04:50 Eos % (Auto) 0.2 % (0.0-4.3) 09/07/21 04:50 Baso % (Auto) 1.1 % (0.0-1.8) 09/07/21 04:50 Lymph # (Auto) 1.5 K/mm3 (1.2-5.4) 09/07/21 04:50 [place] # (Auto) 0.5 K/mm3 (0.0-0.8) 09/07/21 04:50 Eos # (Auto) 0.0 K/mm3 (0.0-0.4) 09/07/21 04:50 Baso # (Auto) 0.1 K/mm3 (0.0-0.1) 09/07/21 04:50 Seg Neutrophils % 61.0 % (40.0-70.0) 09/07/21 04:50 Seg Neutrophils # 3.4 K/mm3 (1.8-7.7) 09/07/21 04:50 VBG pH 7.091 (7.320-7.420) L* 09/04/21 14:44 Sodium 138 mmol/L (137-145) 09/07/21 04:50 Potassium 4.2 mmol/L (3.6-5.0) 09/07/21 04:50 Chloride 105.2 mmol/L (98-107) 09/07/21 04:50 Carbon Dioxide 18 mmol/L (22-30) L 09/07/21 04:50 Anion Gap 19 mmol/L 09/07/21 04:50 BUN 19 mg/dL (9-20) 09/07/21 04:50 Creatinine 0.8 mg/dL (0.8-1.3) 09/07/21 04:50 Estimated GFR > 60 ml/min 09/07/21 04:50 BUN/Creatinine Ratio 24 % 09/07/21 04:50 Glucose 78 mg/dL (75-100) 09/07/21 04:50 POC Glucose 236 mg/dL (70-105) H 09/07/21 16:28 Hemoglobin A1c 11.1 % (4-6) H 09/05/21 05:04 Calcium 9.2 mg/dL (8.4-10.2) 09/07/21 04:50 Phosphorus 3.50 mg/dL (2.5-4.5) D 09/04/21 23:25 Magnesium 2.00 mg/dL (1.7-2.3) 09/04/21 23:25 Total Bilirubin 0.30 mg/dL (0.1-1.2) 09/07/21 04:50 AST 12 units/L (5-40) 09/07/21 04:50 ALT 79 units/L (7-56) H 09/07/21 04:50 Alkaline Phosphatase 154 units/L (35-129) H 09/07/21 04:50 Total Protein 6.8 g/dL (6.3-8.2) 09/07/21 04:50 Albumin 4.0 g/dL (3.9-5) 09/07/21 04:50 Albumin/Globulin Ratio 1.4 % 09/07/21 04:50 [place]pin/IV: Voiding Method Condom Catheter Active Medications - Current Medications Current Medications: Generic Name Dose Route Start Last Admin Trade Name Freq PRN Reason Stop Dose Admin Acetaminophen 650 mg 09/04/21 20:49 Acetaminophen 325 Mg Tab PO Q4H PRN Pain MILD(1-3)/Fever >100.5/WARD Dextrose 50 ml 09/05/21 19:07 Dextrose 50% In Water (25gm) 50 Ml Syringe IV Q30MIN PRN Hypoglycemia Protocol Heparin Sodium (Porcine) 5,000 unit 09/04/21 22:00 09/07/21 09:41 Heparin 5,000 Unit/1 Ml Vial SUB-Q 5,000 unit Q12HR GIL Administration Sodium Chloride 1,000 mls @ 75 mls/hr 09/06/21 12:45 09/07/21 17:42 Nacl 0.9% 1000 Ml IV 75 mls/hr DIRECT GIL Administration Insulin Human Isoph/Insulin Regular 30 unit 09/06/21 13:00 09/07/21 17:43 Insulin Nph/Regular 70/30 Inj SUB-Q 09/12/21 23:59 30 unit BIDDIAB GIL Administration Insulin Human Lispro 0 unit 09/06/21 07:45 09/07/21 16:30 Insulin Lispro 100 Unit/Ml SUB-Q 3 unit ACHS GIL Administration Protocol Metoclopramide HCl 10 mg 09/04/21 20:49 Metoclopramide 10 Mg/2 Ml Inj IV Q6H PRN Nausea And Vomiting Ondansetron HCl 4 mg 09/04/21 20:49 09/06/21 08:04 Ondansetron 4 Mg/2 Ml Inj IV 4 mg Q3H PRN Administration Nausea And Vomiting Pantoprazole Sodium 40 mg 09/07/21 07:30 09/07/21 07:30 Pantoprazole 40 Mg Tab PO 40 mg QDAC GIL Administration Promethazine HCl 25 mg 09/04/21 20:49 Promethazine 25 Mg Rect Supp VA Q6H PRN N/V IF NPO AND NO IV ACCESS Sodium Chloride 10 ml 09/04/21 22:00 09/07/21 09:40 Sodium Chloride 0.9% 10 Ml Flush Syringe IV 10 ml BID GIL Administration Sodium Chloride 10 ml 09/04/21 20:49 Sodium Chloride 0.9% 10 Ml Flush Syringe IV PRN PRN LINE FLUSH Nutrition/Malnutrition Assess - Dietary Evaluation Nutrition/Malnutrition Findings: Nutrition Notes Start: 09/05/21 11:46 Freq: Status: Active Protocol: Document 09/05/21 11:46 GB (Rec: 09/05/21 12:10 GB [id number]) Nutrition Notes Need for Assessment generated from: MD Order,Education Initial or Follow up Assessment Current Diagnosis Diabetes Other Pertinent Diagnosis DKA, hyperkalemia. PMHx: CVA Current Diet clear liquids Labs/Tests 09/05: glucose 225, BUN 21, Na 136, AST 48, ALT 159, AlkP 164 A1c: 11.1 Pertinent Medications KCl/D5/NaCl 125ml/hr (510kcal) Height 5 ft 4 in Weight 72.575 kg [place] Body Weight (kg) 59.09 BMI 27.4 Weight change and time frame admit weight. No reports of changed weight at admission. Weight Status Overweight Subjective/Other Information MD consult: nutritional recommendations, diet education H/P: missed insulin therapy treatments, [facility], Per EMS glucose >500 RN notes: poor historian Percent of energy/protein needs met: unable to assess current Diet: Clear liquids does not meet 75% or greater of EEN. Burn Absent Trauma Absent GI Symptoms None Food Allergy No Skin Integrity/Comment left ankle ulcer Current % PO Other Minimum of two criteria No #1 Nutrition Diagnosis Food and nutrition-related knowledge deficit Etiology DKA As Evidenced by Signs and Symptoms consult MD for diet education, elevated nutritionally related lab values Is patient on ventilator? No Is Patient Ambulatory and/or Out of Bed Yes REE-([facility]-ambulatory/OOB) [ 2030.275 NUTR.MSJOOB] Kcal/Kg value to use for calculation 24 Approximate Energy Requirements Using 1742 kcal/Kg Calculation Used for Recommendations Kcal/kg Additional Notes Protein: 1-1.2 g/kg @ 73k -88g fluids: 1 ml/kcal or per MD Nutrition Intervention Change Diet Order: Advance to consistent carbohydrate (consistency/ texture per DONATION WORKER or bedside swallow eval) Nutrition Support: n/a Add Supplement/Snack (indicate name/kcal n/a /protein ) Education Handouts Provided Review/provide AND: general healthy nutrition education packet with tips for managing DM Goal #1 Diet advanced to consistent carbohydrate by f/u Goal #2 PO intake of meals to be 75% or greater daily for LOS Goal #3 Review/provide AND: general healthy nutrition education packet with tips for managing DM at f/u and/or when admitted to floor Follow-Up By: 09/23/21 Additional Comments F/U: Review/provide AND: general healthy nutrition education packet with tips for managing DM
[2021-09-08] MEDS: PANTOPRAZOLE 40 MG TAB PO SCH (07:30)
[2021-09-08] MEDS: INSULIN LISPRO 100 UNIT/ML SUB-Q SCH ×4 (07:30→22:35)
[2021-09-08] MEDS: INSULIN NPH/REGULAR 70/30 INJ SUB-Q SCH ×2 (08:14→17:18)
[2021-09-08] MEDS: HEPARIN 5,000 UNIT/1 ML VIAL SUB-Q SCH ×2 (09:26→21:27)
[2021-09-08] MEDS: SODIUM CHLORIDE 0.9% 1000 ML 1,000 ML IV SCH ×2 (09:27→22:41)
--- NOTE | 2021-09-08 17:16 | XRay Report ---
Left foot 2 views INDICATION: Left foot pain ulceration of the left foot IMPRESSION: There is alteration involving the lateral aspect of the midfoot near the base of the fift h metatarsal. No definite osteomyelitis identified. There is evidence of slight early neuropathic balaji nges of the left midfoot. Signer Name: Nathaniel Boateng MD Signed: 09/08/2021 5:12 PM Workstation Name: [id number]
--- NOTE | 2021-09-08 17:46 | Progress Note ---
Assessment and Plan Assessment and plan: HPI: This is a 35-year-old male history of insulin-dependent diabetes, CVA res idual left-sided paralysis who presents with elevated blood sugar. He has been between several personal care homes. He has been without insulin therapy for several days. He has been in a new personal senior living for 2 days. He has mild nausea. He is thirsty. He was admitted at outside hospital approximately 2 months ago for left ankle wound infection. He denies any pain or discomfort otherwise. He arrived via EMS. Blood sugar greater than 500 prior to arrival according to EMS. 1) type 1 diabetes mellitus diagnosed at age 19, hemoglobin A1c 11.1 Patient ran out of insulin during the transition to a new facility A1c 11.1 indicating improved glycemic control Per patient, takes Lantus 20 and Humalog 10 units AC. (2) Diabetic ketoacidosis, resolved Current Visit: Yes Status: Acute Qualifiers: Diabetes mellitus type: other specified (including NEIL) Plan to address problem: DKA resolved, the etiology is noncompliance Education about diabetes and management Patient started on Novolin 70/30 at 25 units twice a day Continue to optimize glycemic control (3) chronic dense left hemiplegia, CVA in 11/2019 Nonambulatory (4) chronic decubitus left foot ulcer, stage II/III X-ray showed no definitive osteomyelitis Wound care ordered (5) DVT prophylaxis Current Visit: Yes Status: Acute Plan to address problem: On heparin and GI prophylaxis Disposition: Patient is stable for discharge and Case management consulted for disposition as patient is not sure if he can return to his assisted living facility. Reportedly patient changed multiple facilities. Discussed with the patient and embedded case manager History Interval history: DKA resolved. Vital signs stable. Glycemic control is improving. Tolerating diet. No complaints. Discharge pending placement Hospitalist Physical - Constitutional Vitals: Temp Pulse Resp BP Pulse Ox 97.5 F L 69 18 113/75 97 09/08/21 11:11 09/08/21 11:11 09/08/21 11:11 09/08/21 11:11 09/08/21 11:11 General appearance: Present: no acute distress, well-nourished - EENT Eyes: Present: PERRL, EOM intact ENT: clear oral mucosa - Neck Neck: Present: supple - Respiratory Respiratory effort: normal Respiratory: bilateral: CTA - Cardiovascular Rhythm: regular - Extremities Extremities: No edema Extremity abnormal: other (Chronic decubitus ulcer over the lateral margin of the foot) - Abdominal General gastrointestinal: soft, non-tender, non-distended, normal bowel sounds - Integumentary Integumentary: Absent: rash - Psychiatric Psychiatric: other (Flat affect) - Neurologic Neurologic: other (Dense chronic left hemiplegia) Results - Labs CBC & Chem 7: 09/07/21 04:50 09/07/21 04:50 Labs: Laboratory Last Values WBC 5.6 K/mm3 (4.5-11.0) 09/07/21 04:50 RBC 4.58 M/mm3 (3.65-5.03) 09/07/21 04:50 Hgb 12.3 gm/dl (11.8-15.2) 09/07/21 04:50 Hct 36.3 % (35.5-45.6) 09/07/21 04:50 MCV 79 fl (84-94) L 09/07/21 04:50 MCH 27 pg (28-32) L 09/07/21 04:50 MCHC 34 % (32-34) 09/07/21 04:50 RDW 15.6 % (13.2-15.2) H 09/07/21 04:50 Plt Count 325 K/mm3 (140-440) 09/07/21 04:50 Lymph % (Auto) 27.9 % (13.4-35.0) 09/07/21 04:50 [place] % (Auto) 9.8 % (0.0-7.3) H 09/07/21 04:50 Eos % (Auto) 0.2 % (0.0-4.3) 09/07/21 04:50 Baso % (Auto) 1.1 % (0.0-1.8) 09/07/21 04:50 Lymph # (Auto) 1.5 K/mm3 (1.2-5.4) 09/07/21 04:50 [place] # (Auto) 0.5 K/mm3 (0.0-0.8) 09/07/21 04:50 Eos # (Auto) 0.0 K/mm3 (0.0-0.4) 09/07/21 04:50 Baso # (Auto) 0.1 K/mm3 (0.0-0.1) 09/07/21 04:50 Seg Neutrophils % 61.0 % (40.0-70.0) 09/07/21 04:50 Seg Neutrophils # 3.4 K/mm3 (1.8-7.7) 09/07/21 04:50 VBG pH 7.091 (7.320-7.420) L* 09/04/21 14:44 Sodium 138 mmol/L (137-145) 09/07/21 04:50 Potassium 4.2 mmol/L (3.6-5.0) 09/07/21 04:50 Chloride 105.2 mmol/L (98-107) 09/07/21 04:50 Carbon Dioxide 18 mmol/L (22-30) L 09/07/21 04:50 Anion Gap 19 mmol/L 09/07/21 04:50 BUN 19 mg/dL (9-20) 09/07/21 04:50 Creatinine 0.8 mg/dL (0.8-1.3) 09/07/21 04:50 Estimated GFR > 60 ml/min 09/07/21 04:50 BUN/Creatinine Ratio 24 % 09/07/21 04:50 Glucose 78 mg/dL (75-100) 09/07/21 04:50 POC Glucose 148 mg/dL (70-105) H 09/08/21 16:00 Hemoglobin A1c 11.1 % (4-6) H 09/05/21 05:04 Calcium 9.2 mg/dL (8.4-10.2) 09/07/21 04:50 Phosphorus 3.50 mg/dL (2.5-4.5) D 09/04/21 23:25 Magnesium 2.00 mg/dL (1.7-2.3) 09/04/21 23:25 Total Bilirubin 0.30 mg/dL (0.1-1.2) 09/07/21 04:50 AST 12 units/L (5-40) 09/07/21 04:50 ALT 79 units/L (7-56) H 09/07/21 04:50 Alkaline Phosphatase 154 units/L (35-129) H 09/07/21 04:50 Total Protein 6.8 g/dL (6.3-8.2) 09/07/21 04:50 Albumin 4.0 g/dL (3.9-5) 09/07/21 04:50 Albumin/Globulin Ratio 1.4 % 09/07/21 04:50 [place]/IV: Voiding Method Condom Catheter Active Medications - Current Medications Current Medications: Generic Name Dose Route Start Last Admin Trade Name Freq PRN Reason Stop Dose Admin Acetaminophen 650 mg 09/04/21 20:49 Acetaminophen 325 Mg Tab PO Q4H PRN Pain MILD(1-3)/Fever >100.5/WARD Dextrose 50 ml 09/05/21 19:07 Dextrose 50% In Water (25gm) 50 Ml Syringe IV Q30MIN PRN Hypoglycemia Protocol Heparin Sodium (Porcine) 5,000 unit 09/04/21 22:00 09/08/21 09:26 Heparin 5,000 Unit/1 Ml Vial SUB-Q 5,000 unit Q12HR GIL Administration Sodium Chloride 1,000 mls @ 75 mls/hr 09/06/21 12:45 09/08/21 09:27 Nacl 0.9% 1000 Ml IV 75 mls/hr DIRECT GIL Administration Insulin Human Isoph/Insulin Regular 30 unit 09/06/21 13:00 09/08/21 17:18 Insulin Nph/Regular 70/30 Inj SUB-Q 09/12/21 23:59 Not Given BIDDIAB GIL Insulin Human Lispro 0 unit 09/06/21 07:45 09/08/21 16:30 Insulin Lispro 100 Unit/Ml SUB-Q Not Given ACHS GIL Protocol Metoclopramide HCl 10 mg 09/04/21 20:49 Metoclopramide 10 Mg/2 Ml Inj IV Q6H PRN Nausea And Vomiting Ondansetron HCl 4 mg 09/04/21 20:49 09/06/21 08:04 Ondansetron 4 Mg/2 Ml Inj IV 4 mg Q3H PRN Administration Nausea And Vomiting Pantoprazole Sodium 40 mg 09/07/21 07:30 09/08/21 07:30 Pantoprazole 40 Mg Tab PO 40 mg QDAC GIL Administration Promethazine HCl 25 mg 09/04/21 20:49 Promethazine 25 Mg Rect Supp AR Q6H PRN N/V IF NPO AND NO IV ACCESS Sodium Chloride 10 ml 09/04/21 22:00 09/08/21 09:26 Sodium Chloride 0.9% 10 Ml Flush Syringe IV 10 ml BID GIL Administration Sodium Chloride 10 ml 11/04/21 20:49 Sodium Chloride 0.9% 10 Ml Flush Syringe IV PRN PRN LINE FLUSH Nutrition/Malnutrition Assess - Dietary Evaluation Nutrition/Malnutrition Findings: Nutrition Notes Start: 09/05/21 11:46 Freq: Status: Active Protocol: Document 09/05/21 11:46 GB (Rec: 09/05/21 12:10 GB [id number]) Nutrition Notes Need for Assessment generated from: MD Order,Education Initial or Follow up Assessment Current Diagnosis Diabetes Other Pertinent Diagnosis DKA, hyperkalemia. PMHx: CVA Current Diet clear liquids Labs/Tests 09/05: glucose 225, BUN 21, Na 136, AST 48, ALT 159, AlkP 164 A1c: 11.1 Pertinent Medications KCl/D5/NaCl 125ml/hr (510kcal) Height 5 ft 4 in Weight 72.575 kg [place] Body Weight (kg) 59.09 BMI 27.4 Weight change and time frame admit weight. No reports of changed weight at admission. Weight Status Overweight Subjective/Other Information MD consult: nutritional recommendations, diet education H/P: missed insulin therapy treatments, lived in [facility] personal care homes, Per EMS glucose >500 RN notes: poor historian Percent of energy/protein needs met: unable to assess current Diet: Clear liquids does not meet 75% or greater of EEN. Burn Absent Trauma Absent GI Symptoms None Food Allergy No Skin Integrity/Comment left ankle ulcer Current % PO Other Minimum of two criteria No #1 Nutrition Diagnosis Food and nutrition-related knowledge deficit Etiology DKA As Evidenced by Signs and Symptoms consult MD for diet education, elevated nutritionally related lab values Is patient on ventilator? No Is Patient Ambulatory and/or Out of Bed Yes REE-([place]-ambulatory/OOB) [ 2030.275 NUTR.MSJOOB] Kcal/Kg value to use for calculation 24 Approximate Energy Requirements Using 1742 kcal/Kg Calculation Used for Recommendations Kcal/kg Additional Notes Protein: 1-1.2 g/kg @ 73k -88g fluids: 1 ml/kcal or per MD Nutrition Intervention Change Diet Order: Advance to consistent carbohydrate (consistency/ texture per FLOORMAN or bedside swallow eval) Nutrition Support: n/a Add Supplement/Snack (indicate name/kcal n/a /protein ) Education Handouts Provided Review/provide AND: general healthy nutrition education packet with tips for managing DM Goal #1 Diet advanced to consistent carbohydrate by f/u Goal #2 PO intake of meals to be 75% or greater daily for LOS Goal #3 Review/provide AND: general healthy nutrition education packet with tips for managing DM at f/u and/or when admitted to floor Follow-Up By: 09/23/21 Additional Comments F/U: Review/provide AND: general healthy nutrition education packet with tips for managing DM
--- NOTE | 2021-09-09 08:51 | Discharge Summary ---
Providers - Providers Date of Admission: 09/04/21 16:47 Attending physician: MAE SHERMAN MD 09/04/21 21:02 Consult to Dietitian/Nutrition [CONS] Routine Physician Instructions: Reason For Exam: DKA Reason for Consult: Nutrition Recommendations Reason for Consult: Diet education 09/06/21 04:16 Consult to Wound/ET Nurse [CONS] Routine Reason For Exam: wound eval left ankle ulcer 09/06/21 14:20 Consult to Physician [CONS] Routine Comment: Consulting Provider: LYLY PALACIOS Physician Instructions: Reason For Exam: Coffee-ground emesis 09/07/21 15:39 Consult to Case Management [CONS] Routine Services Needed at Discharge: Other Notified:: CM Additional Physician Instructions: Discharge planning and disposition 09/08/21 14:41 Consult to Case Management [CONS] Routine Services Needed at Discharge: Other Notified:: CM Additional Physician Instructions: Discharge disposition Primary care physician: WEDDING FLORIST Hospitalization Reason for admission: DKA Condition: Stable Hospital course: HPI: This is a 35-year-old male history of insulin-dependent diabetes, CVA residual left-sided paralysis who presents with elevated blood sugar. He has been between several personal care homes. He has been without insulin therapy for several days. He has been in a new personal skilled nursing for 2 days. He has mild nausea. He is thirsty. He was admitted at outside hospital approximately 2 months ago for left ankle wound infection. He denies any pain or discomfort otherwise. He arrived via EMS. Blood sugar greater than 500 prior to arrival according to EMS. 1) type 1 diabetes mellitus diagnosed at age 19, hemoglobin A1c 11.1 Patient ran out of insulin during the transition to a new facility A1c 11.1 indicating improved glycemic control Per patient, takes Lantus 20 and Humalog 10 units AC. (2) Diabetic ketoacidosis, resolved Current Visit: Yes Status: Acute Qualifiers: Diabetes mellitus type: other specified (including NEIL) Plan to address problem: DKA resolved, the etiology is noncompliance Education about diabetes and management Patient started on Novolin 70/30 at 25 units twice a day Continue to optimize glycemic control (3) chronic dense left hemiplegia, CVA in 11/2019 Nonambulatory (4) chronic decubitus left foot ulcer, stage II/III X-ray showed no definitive osteomyelitis Wound care ordered (5) LEFT Hemiplegia- ?bedbound Disposition: Patient is stable for discharge and Case management consulted for disposition as patient is not sure if he can return to his assisted living facility. Reportedly patient changed multiple facilities. Discussed with the patient and test case developer 09/09: Patient clinically stable today, counselling provided on DM management, Blood glucose was mild elevated, increased insulin to 30 units bid. Disposition: 03 [facility] Final Discharge Diagnosis (Prints w/discharge instructions): DKA Time spent for discharge: 35 MINS Core Measure Documentation - Palliative Care Palliative Care/ Comfort Measures: Not Applicable - Core Measures Any of the following diagnoses?: none Exam - Physical Exam Narrative exam: General appearance: Present: no acute distress, well-nourished - EENT Eyes: Present: PERRL, EOM intact ENT: clear oral mucosa - Neck Neck: Present: supple - Respiratory Respiratory effort: normal Respiratory: bilateral: CTA - Cardiovascular Rhythm: regular - Extremities Extremities: No edema Extremity abnormal: other (Chronic decubitus ulcer over the lateral margin of the foot) - Abdominal General gastrointestinal: soft, non-tender, non-distended, normal bowel sounds - Integumentary Integumentary: Absent: rash - Psychiatric Psychiatric: other (Flat affect) - Neurologic Neurologic: other (Dense chronic left hemiplegia) - Constitutional Vitals: Temp Pulse Resp BP Pulse Ox 98.1 F 68 18 111/74 97 09/09/21 05:27 09/09/21 05:27 09/09/21 05:27 09/09/21 05:27 09/09/21 05:27 Plan Activity: advance as tolerated, fall precautions Diet: diabetic Special Instructions: record daily weights, record daily BP diary, physical therapy Follow up with: PRIMARY CARE, [Primary Care Provider] - 3-5 Days Prescriptions: Insulin Aspart 0 unit SQ AC #1 vial Insulin Detemir [Levemir Flextouch] 30 unit SQ DAILY #10 ml
[2021-09-09] MEDS ORDERED: SODIUM CHLORIDE 0.9% 1000 ML 1,000 ML IV ONE (09:00)
[2021-09-09] MEDS: PANTOPRAZOLE 40 MG TAB PO SCH (09:10)
[2021-09-09] MEDS: INSULIN NPH/REGULAR 70/30 INJ SUB-Q SCH ×2 (09:11→17:31)
[2021-09-09] MEDS: INSULIN LISPRO 100 UNIT/ML SUB-Q SCH ×4 (09:13→23:20)
[2021-09-09] MEDS: HEPARIN 5,000 UNIT/1 ML VIAL SUB-Q SCH ×2 (10:36→23:18)
[2021-09-10] MEDS: INSULIN LISPRO 100 UNIT/ML SUB-Q SCH ×4 (07:33→22:36)
[2021-09-10] MEDS: HEPARIN 5,000 UNIT/1 ML VIAL SUB-Q SCH ×2 (10:39→22:35)
[2021-09-10] MEDS: PANTOPRAZOLE 40 MG TAB PO SCH (11:40)
--- NOTE | 2021-09-10 13:03 | Progress Note ---
Assessment and Plan Assessment and plan: HPI: This is a 35-year-old male history of insulin-dependent diabetes, CVA residual left-sided paralysis who presents with elevated blood sugar. He has been between several personal care homes. He has been without insulin therapy for several days. He has been in a new personal prison for 2 days. He has mild nausea. He is thirsty. He was admitted at outside hospital approximately 2 months ago for left ankle wound infection. He denies any pain or discomfort otherwise. He arrived via EMS. Blood sugar greater than 500 prior to arrival according to EMS. 1) type 1 diabetes mellitus diagnosed at age 19, hemoglobin A1c 11.1 Patient ran out of insulin during the transition to a new facility A1c 11.1 indicating improved glycemic control Per patient, takes Lantus 20 and Humalog 10 units AC. (2) Diabetic ketoacidosis, resolved Current Visit: Yes Status: Acute Qualifiers: Diabetes mellitus type: other specified (including NEIL) Plan to address problem: DKA resolved, the etiology is noncompliance Education about diabetes and management Patient started on Novolin 70/30 at 25 units twice a day Continue to optimize glycemic control (3) chronic dense left hemiplegia, CVA in 11/2019 Nonambulatory (4) chronic decubitus left foot ulcer, stage II/III X-ray showed no definitive osteomyelitis Wound care ordered (5) LEFT Hemiplegia- ?bedbound Disposition: Patient is stable for discharge and Case management consulted for disposition as patient is not sure if he can return to his assisted living facility. Reportedly patient changed multiple facilities. Discussed with the patient and embedded case manager 09/09: Patient clinically stable today, counselling provided on DM management, Blood glucose was mild elevated, increased insulin to 30 units bid. 09/10: Remains clinically stable still pending placement we will go ahead and add 15 units of regular insulin and increase twice daily Lantus to 35units for better control of blood sugar will also give a bolus of fluid to prevent proceed into DKA. History Interval history: Patient seen and examined this morning unfortunately did not leave yesterday as placement is still an issue this morning blood sugar was better controlled but this afternoon was worse will make some agitation no changes Hospitalist Physical - Physical exam Narrative exam: General appearance: Present: no acute distress, well-nourished - EENT Eyes: Present: PERRL, EOM intact ENT: clear oral mucosa - Neck Neck: Present: supple - Respiratory Respiratory effort: normal Respiratory: bilateral: CTA - Cardiovascular Rhythm: regular - Extremities Extremities: No edema Extremity abnormal: other (Chronic decubitus ulcer over the lateral margin of the foot) - Abdominal General gastrointestinal: soft, non-tender, non-distended, normal bowel sounds - Integumentary Integumentary: Absent: rash - Psychiatric Psychiatric: other (Flat affect) - Neurologic Neurologic: other (Dense chronic left hemiplegia) - Constitutional Vitals: Temp Pulse Resp BP Pulse Ox 97.4 F L 58 L 18 113/76 97 09/10/21 06:04 09/10/21 06:04 09/10/21 06:04 09/10/21 06:04 09/10/21 06:04 General appearance: Present: no acute distress, well-nourished Results - Labs CBC & Chem 7: 09/07/21 04:50 09/07/21 04:50 Labs: Laboratory Last Values WBC 5.6 K/mm3 (4.5-11.0) 09/07/21 04:50 RBC 4.58 M/mm3 (3.65-5.03) 09/07/21 04:50 Hgb 12.3 gm/dl (11.8-15.2) 09/07/21 04:50 Hct 36.3 % (35.5-45.6) 09/07/21 04:50 MCV 79 fl (84-94) L 09/07/21 04:50 MCH 27 pg (28-32) L 09/07/21 04:50 MCHC 34 % (32-34) 09/07/21 04:50 RDW 15.6 % (13.2-15.2) H 09/07/21 04:50 Plt Count 325 K/mm3 (140-440) 09/07/21 04:50 Lymph % (Auto) 27.9 % (13.4-35.0) 09/07/21 04:50 [place] % (Auto) 9.8 % (0.0-7.3) H 09/07/21 04:50 Eos % (Auto) 0.2 % (0.0-4.3) 09/07/21 04:50 Baso % (Auto) 1.1 % (0.0-1.8) 09/07/21 04:50 Lymph # (Auto) 1.5 K/mm3 (1.2-5.4) 09/07/21 04:50 [place] # (Auto) 0.5 K/mm3 (0.0-0.8) 09/07/21 04:50 Eos # (Auto) 0.0 K/mm3 (0.0-0.4) 09/07/21 04:50 Baso # (Auto) 0.1 K/mm3 (0.0-0.1) 09/07/21 04:50 Seg Neutrophils % 61.0 % (40.0-70.0) 09/07/21 04:50 Seg Neutrophils # 3.4 K/mm3 (1.8-7.7) 09/07/21 04:50 VBG pH 7.091 (7.320-7.420) L* 09/04/21 14:44 Sodium 138 mmol/L (137-145) 09/07/21 04:50 Potassium 4.2 mmol/L (3.6-5.0) 09/07/21 04:50 Chloride 105.2 mmol/L (98-107) 09/07/21 04:50 Carbon Dioxide 18 mmol/L (22-30) L 09/07/21 04:50 Anion Gap 19 mmol/L 09/07/21 04:50 BUN 19 mg/dL (9-20) 09/07/21 04:50 Creatinine 0.8 mg/dL (0.8-1.3) 09/07/21 04:50 Estimated GFR > 60 ml/min 09/07/21 04:50 BUN/Creatinine Ratio 24 % 09/07/21 04:50 Glucose 78 mg/dL (75-100) 09/07/21 04:50 POC Glucose 408 mg/dL (70-105) H 09/10/21 11:25 Hemoglobin A1c 11.1 % (4-6) H 09/05/21 05:04 Calcium 9.2 mg/dL (8.4-10.2) 09/07/21 04:50 Phosphorus 3.50 mg/dL (2.5-4.5) D 09/04/21 23:25 Magnesium 2.00 mg/dL (1.7-2.3) 09/04/21 23:25 Total Bilirubin 0.30 mg/dL (0.1-1.2) 09/07/21 04:50 AST 12 units/L (5-40) 09/07/21 04:50 ALT 79 units/L (7-56) H 09/07/21 04:50 Alkaline Phosphatase 154 units/L (35-129) H 09/07/21 04:50 Total Protein 6.8 g/dL (6.3-8.2) 09/07/21 04:50 Albumin 4.0 g/dL (3.9-5) 09/07/21 04:50 Albumin/Globulin Ratio 1.4 % 09/07/21 04:50 Coronavirus (PCR) Negative (Negative) 09/09/21 Unknown [place]/IV: Voiding Method Condom Catheter Active Medications - Current Medications Current Medications: Generic Name Dose Route Start Last Admin Trade Name Freq PRN Reason Stop Dose Admin Acetaminophen 650 mg 09/04/21 20:49 Acetaminophen 325 Mg Tab PO Q4H PRN Pain MILD(1-3)/Fever >100.5/WARD Dextrose 50 ml 09/05/21 19:07 Dextrose 50% In Water (25gm) 50 Ml Syringe IV Q30MIN PRN Hypoglycemia Protocol Heparin Sodium (Porcine) 5,000 unit 09/04/21 22:00 09/09/21 23:18 Heparin 5,000 Unit/1 Ml Vial SUB-Q 5,000 unit Q12HR GIL Administration Sodium Chloride 1,000 mls @ 75 mls/hr 09/06/21 12:45 09/09/21 20:28 Nacl 0.9% 1000 Ml IV Infused DIRECT GIL Infusion Sodium Chloride 1,000 mls @ 999 mls/hr 09/10/21 12:59 Nacl 0.9% 1000 Ml IV 09/10/21 13:59 BOLUS ONE Insulin Human Isoph/Insulin Regular 30 unit 09/06/21 13:00 09/09/21 17:31 Insulin Nph/Regular 70/30 Inj SUB-Q 09/12/21 23:59 Not Given BIDDIAB GIL Insulin Human Lispro 0 unit 09/06/21 07:45 09/09/21 23:20 Insulin Lispro 100 Unit/Ml SUB-Q 3 unit ACHS GIL Administration Protocol Insulin Human Regular 15 units 09/10/21 12:59 Insulin Regular, Human 100 Units/1 Ml SUB-Q 09/10/21 13:00 ONCE ONE Metoclopramide HCl 10 mg 09/04/21 20:49 Metoclopramide 10 Mg/2 Ml Inj IV Q6H PRN Nausea And Vomiting Ondansetron HCl 4 mg 09/04/21 20:49 09/06/21 08:04 Ondansetron 4 Mg/2 Ml Inj IV 4 mg Q3H PRN Administration Nausea And Vomiting Pantoprazole Sodium 40 mg 09/07/21 07:30 09/09/21 09:10 Pantoprazole 40 Mg Tab PO 40 mg QDAC GIL Administration Promethazine HCl 25 mg 09/04/21 20:49 Promethazine 25 Mg Rect Supp TX Q6H PRN N/V IF NPO AND NO IV ACCESS Sodium Chloride 10 ml 09/04/21 22:00 09/09/21 23:19 Sodium Chloride 0.9% 10 Ml Flush Syringe IV 10 ml BID GIL Administration Sodium Chloride 10 ml 09/04/21 20:49 Sodium Chloride 0.9% 10 Ml Flush Syringe IV PRN PRN LINE FLUSH Nutrition/Malnutrition Assess - Dietary Evaluation Nutrition/Malnutrition Findings: Nutrition Notes Start: 09/05/21 11:46 Freq: Status: Active Protocol: Document 09/05/21 11:46 GB (Rec: 09/05/21 12:10 GB [id number]) Nutrition Notes Need for Assessment generated from: MD Order,Education Initial or Follow up Assessment Current Diagnosis Diabetes Other Pertinent Diagnosis DKA, hyperkalemia. PMHx: CVA Current Diet clear liquids Labs/Tests 09/05: glucose 225, BUN 21, Na 136, AST 48, ALT 159, AlkP 164 A1c: 11.1 Pertinent Medications KCl/D5/NaCl 125ml/hr (510kcal) Height 5 ft 4 in Weight 72.575 kg [place] Body Weight (kg) 59.09 BMI 27.4 Weight change and time frame admit weight. No reports of changed weight at admission. Weight Status Overweight Subjective/Other Information MD consult: nutritional recommendations, diet education H/P: missed insulin therapy treatments, lived in [facility] personal care homes, Per EMS glucose >500 RN notes: poor historian Percent of energy/protein needs met: unable to assess current Diet: Clear liquids does not meet 75% or greater of EEN. Burn Absent Trauma Absent GI Symptoms None Food Allergy No Skin Integrity/Comment left ankle ulcer Current % PO Other Minimum of two criteria No #1 Nutrition Diagnosis Food and nutrition-related knowledge deficit Etiology DKA As Evidenced by Signs and Symptoms consult MD for diet education, elevated nutritionally related lab values Is patient on ventilator? No Is Patient Ambulatory and/or Out of Bed Yes REE-([place]-St. Jeor-ambulatory/OOB) [ 2030.275 NUTR.[id number]] Kcal/Kg value to use for calculation 24 Approximate Energy Requirements Using 1742 kcal/Kg Calculation Used for Recommendations Kcal/kg Additional Notes Protein: 1-1.2 g/kg @ 73k -88g fluids: 1 ml/kcal or per MD Nutrition Intervention Change Diet Order: Advance to consistent carbohydrate (consistency/ texture per GROOVING LATHE TENDER or bedside swallow eval) Nutrition Support: n/a Add Supplement/Snack (indicate name/kcal n/a /protein ) Education Handouts Provided Review/provide AND: general healthy nutrition education packet with tips for managing DM Goal #1 Diet advanced to consistent carbohydrate by f/u Goal #2 PO intake of meals to be 75% or greater daily for LOS Goal #3 Review/provide AND: general healthy nutrition education packet with tips for managing DM at f/u and/or when admitted to floor Follow-Up By: 09/23/21 Additional Comments F/U: Review/provide AND: general healthy nutrition education packet with tips for managing DM
[2021-09-10] MEDS ORDERED: INSULIN REGULAR, HUMAN 100 UNITS/1 ML SUB-Q ONE (14:30)
[2021-09-10] MEDS ORDERED: SODIUM CHLORIDE 0.9% 1000 ML 1,000 ML IV ONE (14:30)
--- NOTE | 2021-09-10 17:44 | XRay Report ---
CHEST 1 VIEW INDICATION / CLINICAL INFORMATION: SHORTNESS OF BREATH. FINDINGS: SUPPORT DEVICES: None. HEART / MEDIASTINUM: No significant abnormality. LUNGS / PLEURA: No significant pulmonary or pleural abnormality. No pneumothorax. ADDITIONAL FINDINGS: No significant additional findings. IMPRESSION: 1. No acute findings. Signer Name: Nathaniel Boateng MD Signed: 09/10/2021 5:40 PM Workstation Name: [email or web address]
[2021-09-10] MEDS: INSULIN NPH/REGULAR 70/30 INJ SUB-Q SCH (18:34)
--- NOTE | 2021-09-11 07:57 | Discharge Summary ---
Providers - Providers Date of Admission: 09/04/21 16:47 Attending physician: MAE SHERMAN MD 09/04/21 21:02 Consult to Dietitian/Nutrition [CONS] Routine Physician Instructions: Reason For Exam: DKA Reason for Consult: Nutrition Recommendations Reason for Consult: Diet education 09/06/21 04:16 Consult to Wound/ET Nurse [CONS] Routine Reason For Exam: wound eval left ankle ulcer 09/06/21 14:20 Consult to Physician [CONS] Routine Comment: Consulting Provider: LYLY PALACIOS Physician Instructions: Reason For Exam: Coffee-ground emesis 09/07/21 15:39 Consult to Case Management [CONS] Routine Services Needed at Discharge: Other Notified:: CM Additional Physician Instructions: Discharge planning and disposition 09/08/21 14:41 Consult to Case Management [CONS] Routine Services Needed at Discharge: Other Notified:: CM Additional Physician Instructions: Discharge disposition Primary care physician: DEAN OF EDUCATION Hospitalization Reason for admission: DKA Condition: Stable Hospital course: HPI: This is a 35-year-old male history of insulin-dependent diabetes, CVA residual left-sided paralysis who presents with elevated blood sugar. He has been between several personal care homes. He has been without insulin therapy for several days. He has been in a new personal senior living for 2 days. He has mild nausea. He is thirsty. He was admitted at outside hospital approximately 2 months ago for left ankle wound infection. He denies any pain or discomfort otherwise. He arrived via EMS. Blood sugar greater than 500 prior to arrival according to EMS. 1) type 1 diabetes mellitus diagnosed at age 19, hemoglobin A1c 11.1 Patient ran out of insulin during the transition to a new facility A1c 11.1 indicating improved glycemic control Per patient, takes Lantus 20 and Humalog 10 units AC. (2) Diabetic ketoacidosis, resolved Current Visit: Yes Status: Acute Qualifiers: Diabetes mellitus type: other specified (including NEIL) Plan to address problem: DKA resolved, the etiology is noncompliance Education about diabetes and management Patient started on Novolin 70/30 at 25 units twice a day Continue to optimize glycemic control (3) chronic dense left hemiplegia, CVA in 11/2019 Nonambulatory (4) chronic decubitus left foot ulcer, stage II/III X-ray showed no definitive osteomyelitis Wound care ordered (5) LEFT Hemiplegia- ?bedbound Disposition: Patient is stable for discharge and Case management consulted for disposition as patient is not sure if he can return to his assisted living facility. Reportedly patient changed multiple facilities. Discussed with the patient and protective services case worker 09/09: Patient clinically stable today, counselling provided on DM management, Blood glucose was mild elevated, increased insulin to 30 units bid. 09/10: Remains clinically stable still pending placement we will go ahead and add 15 units of regular insulin and increase twice daily Lantus to 35units for better control of blood sugar will also give a bolus of fluid to prevent proceed into DKA. 09/11: Patient seen and examined remains clinically stable stable for discharge at this time. Counseling provided discussed with case management will arrange for personal senior living and also patient will follow with primary care physician as arranged by the personal senior living patient will continue home medications especially with underlying history of CVA I do not have full history to know why he is not on aspirin and no one can provide that information for me including a statin I recommend that this be revisited by the primary care physician and restarted if no contraindication Disposition: [facility] Final Discharge Diagnosis (Prints w/discharge instructions): DKA Time spent for discharge: 35-minute Core Measure Documentation - Palliative Care Palliative Care/ Comfort Measures: Not Applicable - Core Measures Any of the following diagnoses?: none Exam - Physical Exam Narrative exam: General appearance: Present: no acute distress, well-nourished - EENT Eyes: Present: PERRL, EOM intact ENT: clear oral mucosa - Neck Neck: Present: supple - Respiratory Respiratory effort: normal Respiratory: bilateral: CTA - Cardiovascular Rhythm: regular - Extremities Extremities: No edema Extremity abnormal: other (Chronic decubitus ulcer over the lateral margin of the foot) - Abdominal General gastrointestinal: soft, non-tender, non-distended, normal bowel sounds - Integumentary Integumentary: Absent: rash - Psychiatric Psychiatric: other (Flat affect) - Neurologic Neurologic: other (Dense chronic left hemiplegia) - Constitutional Vitals: Temp Pulse Resp BP Pulse Ox 98.2 F 66 19 120/68 97 09/11/21 05:56 09/11/21 05:56 09/11/21 05:56 09/11/21 05:56 09/11/21 05:56 Plan Activity: advance as tolerated, fall precautions Diet: diabetic Special Instructions: record daily weights, record daily BP diary Care Plan Goals: Follow-up with PCP to further evaluate for initiation of aspirin and statin considering history of CVA Follow up with: PRIMARY CARE, [Primary Care Provider] - 3-5 Days Prescriptions: Insulin Aspart 0 unit SQ AC #1 vial Insulin NPH/Regular [NovoLIN 70/30] 35 unit SUB-Q BIDDIAB #10 ml
[2021-09-11] MEDS: INSULIN LISPRO 100 UNIT/ML SUB-Q SCH ×2 (08:17→22:00)
[2021-09-11] MEDS: PANTOPRAZOLE 40 MG TAB PO SCH (08:17)
[2021-09-11] MEDS: INSULIN NPH/REGULAR 70/30 INJ SUB-Q SCH (08:17)
[2021-09-11] MEDS: HEPARIN 5,000 UNIT/1 ML VIAL SUB-Q SCH ×2 (10:46→22:00)
[2021-09-12] MEDS: INSULIN LISPRO 100 UNIT/ML SUB-Q SCH ×4 (08:01→22:00)
[2021-09-12] MEDS: PANTOPRAZOLE 40 MG TAB PO SCH (09:23)
[2021-09-12] MEDS: HEPARIN 5,000 UNIT/1 ML VIAL SUB-Q SCH ×2 (09:24→21:53)
[2021-09-12] MEDS: INSULIN NPH/REGULAR 70/30 INJ SUB-Q SCH ×2 (09:24→16:51)
--- NOTE | 2021-09-12 10:25 | Progress Note ---
Assessment and Plan Assessment and plan: HPI: This is a 35-year-old male history of insulin-dependent diabetes, CVA residual left-sided paralysis who presents with elevated blood sugar. He has been between several personal care homes. He has been without insulin therapy for several days. He has been in a new personal longterm for 2 days. He has mild nausea. He is thirsty. He was admitted at outside hospital approximately 2 months ago for left ankle wound infection. He denies any pain or discomfort otherwise. He arrived via EMS. Blood sugar greater than 500 prior to arrival according to EMS. 1) type 1 diabetes mellitus diagnosed at age 19, hemoglobin A1c 11.1 Patient ran out of insulin during the transition to a new facility A1c 11.1 indicating improved glycemic control Per patient, takes Lantus 20 and Humalog 10 units AC. (2) Diabetic ketoacidosis, resolved Current Visit: Yes Status: Acute Qualifiers: Diabetes mellitus type: other specified (including NEIL) Plan to address problem: DKA resolved, the etiology is noncompliance Education about diabetes and management Patient started on Novolin 70/30 at 25 units twice a day Continue to optimize glycemic control (3) chronic dense left hemiplegia, CVA in 11/2019 Nonambulatory (4) chronic decubitus left foot ulcer, stage II/III X-ray showed no definitive osteomyelitis Wound care ordered (5) LEFT Hemiplegia- ?bedbound Disposition: Patient is stable for discharge and Case management consulted for disposition as patient is not sure if he can return to his assisted living facility. Reportedly patient changed multiple facilities. Discussed with the patient and catalytic case operator 09/09: Patient clinically stable today, counselling provided on DM management, Blood glucose was mild elevated, increased insulin to 30 units bid. 09/10: Remains clinically stable still pending placement we will go ahead and add 15 units of regular insulin and increase twice daily Lantus to 35units for better control of blood sugar will also give a bolus of fluid to prevent proceed into DKA. 09/11: Patient seen and examined remains clinically stable stable for discharge at this time. Counseling provided discussed with case management will arrange for personal longterm and also patient will follow with primary care physician as arranged by the personal longterm patient will continue home medications especially with underlying history of CVA I do not have full history to know why he is not on aspirin and no one can provide that information for me including a statin I recommend that this be revisited by the primary care physician and restarted if no contraindication 09/12: Awaiting discharge medications and arrangement with outside facility prior to discharge. I do not see any reason why he is not on nightly statin therapy will add pravastatin to his medication regimen at this time. History Interval history: Patient seen and examined this morning unfortunately did not leave due to medication issues and cost of medication outpatient Hospitalist Physical - Physical exam Narrative exam: General appearance: Present: no acute distress, well-nourished - EENT Eyes: Present: PERRL, EOM intact ENT: clear oral mucosa - Neck Neck: Present: supple - Respiratory Respiratory effort: normal Respiratory: bilateral: CTA - Cardiovascular Rhythm: regular - Extremities Extremities: No edema Extremity abnormal: other (Chronic decubitus ulcer over the lateral margin of the foot) - Abdominal General gastrointestinal: soft, non-tender, non-distended, normal bowel sounds - Integumentary Integumentary: Absent: rash - Psychiatric Psychiatric: other (Flat affect) - Neurologic Neurologic: other (Dense chronic left hemiplegia) - Constitutional Vitals: Temp Pulse Resp BP Pulse Ox 98.1 F 66 18 81/49 98 09/12/21 04:24 09/12/21 04:24 09/12/21 04:24 09/12/21 04:24 09/12/21 04:24 General appearance: Present: no acute distress, well-nourished Results - Labs CBC & Chem 7: 09/07/21 04:50 09/11/21 08:09 Labs: Laboratory Last Values WBC 5.6 K/mm3 (4.5-11.0) 09/07/21 04:50 RBC 4.58 M/mm3 (3.65-5.03) 09/07/21 04:50 Hgb 12.3 gm/dl (11.8-15.2) 09/07/21 04:50 Hct 36.3 % (35.5-45.6) 09/07/21 04:50 MCV 79 fl (84-94) L 09/07/21 04:50 MCH 27 pg (28-32) L 09/07/21 04:50 MCHC 34 % (32-34) 09/07/21 04:50 RDW 15.6 % (13.2-15.2) H 09/07/21 04:50 Plt Count 325 K/mm3 (140-440) 09/07/21 04:50 Lymph % (Auto) 27.9 % (13.4-35.0) 09/07/21 04:50 [place] % (Auto) 9.8 % (0.0-7.3) H 09/07/21 04:50 Eos % (Auto) 0.2 % (0.0-4.3) 09/07/21 04:50 Baso % (Auto) 1.1 % (0.0-1.8) 09/07/21 04:50 Lymph # (Auto) 1.5 K/mm3 (1.2-5.4) 09/07/21 04:50 [place] # (Auto) 0.5 K/mm3 (0.0-0.8) 09/07/21 04:50 Eos # (Auto) 0.0 K/mm3 (0.0-0.4) 09/07/21 04:50 Baso # (Auto) 0.1 K/mm3 (0.0-0.1) 09/07/21 04:50 Seg Neutrophils % 61.0 % (40.0-70.0) 09/07/21 04:50 Seg Neutrophils # 3.4 K/mm3 (1.8-7.7) 09/07/21 04:50 VBG pH 7.091 (7.320-7.420) L* 09/04/21 14:44 Sodium 138 mmol/L (137-145) 09/07/21 04:50 Potassium 4.2 mmol/L (3.6-5.0) 09/07/21 04:50 Chloride 105.2 mmol/L (98-107) 09/07/21 04:50 Carbon Dioxide 18 mmol/L (22-30) L 09/07/21 04:50 Anion Gap 19 mmol/L 09/07/21 04:50 BUN 19 mg/dL (9-20) 09/07/21 04:50 Creatinine 0.8 mg/dL (0.8-1.3) 09/07/21 04:50 Estimated GFR > 60 ml/min 09/07/21 04:50 BUN/Creatinine Ratio 24 % 09/07/21 04:50 Glucose 175 mg/dL (75-100) H 09/11/21 08:09 POC Glucose 134 mg/dL (70-105) H 09/12/21 07:36 Hemoglobin A1c 11.1 % (4-6) H 09/05/21 05:04 Calcium 9.2 mg/dL (8.4-10.2) 09/07/21 04:50 Phosphorus 3.50 mg/dL (2.5-4.5) D 09/04/21 23:25 Magnesium 2.00 mg/dL (1.7-2.3) 09/04/21 23:25 Total Bilirubin 0.30 mg/dL (0.1-1.2) 09/07/21 04:50 AST 12 units/L (5-40) 09/07/21 04:50 ALT 79 units/L (7-56) H 09/07/21 04:50 Alkaline Phosphatase 154 units/L (35-129) H 09/07/21 04:50 Total Protein 6.8 g/dL (6.3-8.2) 09/07/21 04:50 Albumin 4.0 g/dL (3.9-5) 09/07/21 04:50 Albumin/Globulin Ratio 1.4 % 09/07/21 04:50 Coronavirus (PCR) Negative (Negative) 09/09/21 Unknown Turpin/IV: Voiding Method Condom Catheter Active Medications - Current Medications Current Medications: Generic Name Dose Route Start Last Admin Trade Name Freq PRN Reason Stop Dose Admin Acetaminophen 650 mg 09/04/21 20:49 Acetaminophen 325 Mg Tab PO Q4H PRN Pain MILD(1-3)/Fever >100.5/WARD Dextrose 50 ml 09/05/21 19:07 09/11/21 05:06 Dextrose 50% In Water (25gm) 50 Ml Syringe IV 50 ml Q30MIN PRN Administration Hypoglycemia Protocol Heparin Sodium (Porcine) 5,000 unit 09/04/21 22:00 09/12/21 09:24 Heparin 5,000 Unit/1 Ml Vial SUB-Q 5,000 unit Q12HR GIL Administration Sodium Chloride 1,000 mls @ 75 mls/hr 09/06/21 12:45 09/09/21 20:28 Nacl 0.9% 1000 Ml IV Infused DIRECT GIL Infusion Insulin Human Isoph/Insulin Regular 35 unit 09/10/21 17:00 09/12/21 09:24 Insulin Nph/Regular 70/30 Inj SUB-Q 35 unit BIDDIAB GIL Administration Insulin Human Lispro 0 unit 09/06/21 07:45 09/12/21 08:01 Insulin Lispro 100 Unit/Ml SUB-Q Not Given ACHS [facility] Protocol Metoclopramide HCl 10 mg 09/04/21 20:49 Metoclopramide 10 Mg/2 Ml Inj IV Q6H PRN Nausea And Vomiting Ondansetron HCl 4 mg 09/04/21 20:49 09/06/21 08:04 Ondansetron 4 Mg/2 Ml Inj IV 4 mg Q3H PRN Administration Nausea And Vomiting Pantoprazole Sodium 40 mg 09/07/21 07:30 09/12/21 09:23 Pantoprazole 40 Mg Tab PO 40 mg QDAC GIL Administration Promethazine HCl 25 mg 09/04/21 20:49 Promethazine 25 Mg Rect Supp DE Q6H PRN N/V IF NPO AND NO IV ACCESS Sodium Chloride 10 ml 09/04/21 22:00 09/12/21 09:25 Sodium Chloride 0.9% 10 Ml Flush Syringe IV 10 ml BID GIL Administration Sodium Chloride 10 ml 09/04/21 20:49 Sodium Chloride 0.9% 10 Ml Flush Syringe IV PRN PRN LINE FLUSH Nutrition/Malnutrition Assess - Dietary Evaluation Nutrition/Malnutrition Findings: Nutrition Notes Start: 09/05/21 11:46 Freq: Status: Active Protocol: Document 09/05/21 11:46 GB (Rec: 09/05/21 12:10 GB [email or web address]) Nutrition Notes Need for Assessment generated from: MD Order,Education Initial or Follow up Assessment Current Diagnosis Diabetes Other Pertinent Diagnosis DKA, hyperkalemia. PMHx: CVA Current Diet clear liquids Labs/Tests 09/05: glucose 225, BUN 21, Na 136, AST 48, ALT 159, AlkP 164 A1c: 11.1 Pertinent Medications KCl/D5/NaCl 125ml/hr (510kcal) Height 5 ft 4 in Weight 72.575 kg [place] Body Weight (kg) 59.09 BMI 27.4 Weight change and time frame admit weight. No reports of changed weight at admission. Weight Status Overweight Subjective/Other Information MD consult: nutritional recommendations, diet education H/P: missed insulin therapy treatments, lived in [facility] personal care homes, Per EMS glucose >500 RN notes: poor historian Percent of energy/protein needs met: unable to assess current Diet: Clear liquids does not meet 75% or greater of EEN. Burn Absent Trauma Absent GI Symptoms None Food Allergy No Skin Integrity/Comment left ankle ulcer Current % PO Other Minimum of two criteria No #1 Nutrition Diagnosis Food and nutrition-related knowledge deficit Etiology DKA As Evidenced by Signs and Symptoms consult MD for diet education, elevated nutritionally related lab values Is patient on ventilator? No Is Patient Ambulatory and/or Out of Bed Yes REE-([place]-St. Jeor-ambulatory/OOB) [ 2030.275 NUTR.MSJOOB] Kcal/Kg value to use for calculation 24 Approximate Energy Requirements Using 1742 kcal/Kg Calculation Used for Recommendations Kcal/kg Additional Notes Protein: 1-1.2 g/kg @ 73k -88g fluids: 1 ml/kcal or per MD Nutrition Intervention Change Diet Order: Advance to consistent carbohydrate (consistency/ texture per CRM FUNCTIONAL ANALYST or bedside swallow eval) Nutrition Support: n/a Add Supplement/Snack (indicate name/kcal n/a /protein ) Education Handouts Provided Review/provide AND: general healthy nutrition education packet with tips for managing DM Goal #1 Diet advanced to consistent carbohydrate by f/u Goal #2 PO intake of meals to be 75% or greater daily for LOS Goal #3 Review/provide AND: general healthy nutrition education packet with tips for managing DM at f/u and/or when admitted to floor Follow-Up By: 09/23/21 Additional Comments F/U: Review/provide AND: general healthy nutrition education packet with tips for managing DM
[2021-09-13 05:56] VITALS: BP 102/67
[2021-09-13] MEDS: INSULIN LISPRO 100 UNIT/ML SUB-Q SCH (09:28)
[2021-09-13] MEDS: INSULIN NPH/REGULAR 70/30 INJ SUB-Q SCH (09:29)
[2021-09-13] MEDS: HEPARIN 5,000 UNIT/1 ML VIAL SUB-Q SCH (09:30)
[2021-09-13] MEDS: PANTOPRAZOLE 40 MG TAB PO SCH (09:30)
--- NOTE | 2021-09-13 09:49 | Progress Note ---
Assessment and Plan Assessment and plan: HPI: This is a 35-year-old male history of insulin-dependent diabetes, CVA residual left-sided paralysis who presents with elevated blood sugar. He has been between several personal care homes. He has been without insulin therapy for several days. He has been in a new personal residential for 2 days. He has mild nausea. He is thirsty. He was admitted at outside hospital approximately 2 months ago for left ankle wound infection. He denies any pain or discomfort otherwise. He arrived via EMS. Blood sugar greater than 500 prior to arrival according to EMS. 1) type 1 diabetes mellitus diagnosed at age 19, hemoglobin A1c 11.1 Patient ran out of insulin during the transition to a new facility A1c 11.1 indicating improved glycemic control Per patient, takes Lantus 20 and Humalog 10 units AC. (2) Diabetic ketoacidosis, resolved Current Visit: Yes Status: Acute Qualifiers: Diabetes mellitus type: other specified (including NEIL) Plan to address problem: DKA resolved, the etiology is noncompliance Education about diabetes and management Patient started on Novolin 70/30 at 25 units twice a day Continue to optimize glycemic control (3) chronic dense left hemiplegia, CVA in 11/2019 Nonambulatory (4) chronic decubitus left foot ulcer, stage II/III X-ray showed no definitive osteomyelitis Wound care ordered (5) LEFT Hemiplegia- ?bedbound Disposition: Patient is stable for discharge and Case management consulted for disposition as patient is not sure if he can return to his assisted living facility. Reportedly patient changed multiple facilities. Discussed with the patient and spring encaser 09/09: Patient clinically stable today, counselling provided on DM management, Blood glucose was mild elevated, increased insulin to 30 units bid. 09/10: Remains clinically stable still pending placement we will go ahead and add 15 units of regular insulin and increase twice daily Lantus to 35units for better control of blood sugar will also give a bolus of fluid to prevent proceed into DKA. 09/11: Patient seen and examined remains clinically stable stable for discharge at this time. Counseling provided discussed with case management will arrange for personal residential and also patient will follow with primary care physician as arranged by the personal residential patient will continue home medications especially with underlying history of CVA I do not have full history to know why he is not on aspirin and no one can provide that information for me including a statin I recommend that this be revisited by the primary care physician and restarted if no contraindication 09/12: Awaiting discharge medications and arrangement with outside facility prior to discharge. I do not see any reason why he is not on nightly statin therapy will add pravastatin to his medication regimen at this time. 09/13: Continue supportive care and wound management, Awaiting placement. Discussed with nursing staff and case management History Interval history: Patient seen and examined this morning , NO NEW COMPLAINTS, AWAITING DISCHARGE Hospitalist Physical - Physical exam Narrative exam: General appearance: Present: no acute distress, well-nourished - EENT Eyes: Present: PERRL, EOM intact ENT: clear oral mucosa - Neck Neck: Present: supple - Respiratory Respiratory effort: normal Respiratory: bilateral: CTA - Cardiovascular Rhythm: regular - Extremities Extremities: No edema Extremity abnormal: other (Chronic decubitus ulcer over the lateral margin of the foot) - Abdominal General gastrointestinal: soft, non-tender, non-distended, normal bowel sounds - Integumentary Integumentary: Absent: rash - Psychiatric Psychiatric: other (Flat affect) - Neurologic Neurologic: other (Dense chronic left hemiplegia) - Constitutional Vitals: Temp Pulse Resp BP Pulse Ox 97.7 F 60 20 102/67 96 09/13/21 05:55 09/13/21 05:55 09/13/21 05:55 09/13/21 05:55 09/13/21 05:55 General appearance: Present: no acute distress, well-nourished Results - Labs CBC & Chem 7: 09/07/21 04:50 09/11/21 08:09 Labs: Laboratory Last Values WBC 5.6 K/mm3 (4.5-11.0) 09/07/21 04:50 RBC 4.58 M/mm3 (3.65-5.03) 09/07/21 04:50 Hgb 12.3 gm/dl (11.8-15.2) 09/07/21 04:50 Hct 36.3 % (35.5-45.6) 09/07/21 04:50 MCV 79 fl (84-94) L 09/07/21 04:50 MCH 27 pg (28-32) L 09/07/21 04:50 MCHC 34 % (32-34) 09/07/21 04:50 RDW 15.6 % (13.2-15.2) H 09/07/21 04:50 Plt Count 325 K/mm3 (140-440) 09/07/21 04:50 Lymph % (Auto) 27.9 % (13.4-35.0) 09/07/21 04:50 [place] % (Auto) 9.8 % (0.0-7.3) H 09/07/21 04:50 Eos % (Auto) 0.2 % (0.0-4.3) 09/07/21 04:50 Baso % (Auto) 1.1 % (0.0-1.8) 09/07/21 04:50 Lymph # (Auto) 1.5 K/mm3 (1.2-5.4) 09/07/21 04:50 [place] # (Auto) 0.5 K/mm3 (0.0-0.8) 09/07/21 04:50 Eos # (Auto) 0.0 K/mm3 (0.0-0.4) 09/07/21 04:50 Baso # (Auto) 0.1 K/mm3 (0.0-0.1) 09/07/21 04:50 Seg Neutrophils % 61.0 % (40.0-70.0) 09/07/21 04:50 Seg Neutrophils # 3.4 K/mm3 (1.8-7.7) 09/07/21 04:50 VBG pH 7.091 (7.320-7.420) L* 09/04/21 14:44 Sodium 138 mmol/L (137-145) 09/07/21 04:50 Potassium 4.2 mmol/L (3.6-5.0) 09/07/21 04:50 Chloride 105.2 mmol/L (98-107) 09/07/21 04:50 Carbon Dioxide 18 mmol/L (22-30) L 09/07/21 04:50 Anion Gap 19 mmol/L 09/07/21 04:50 BUN 19 mg/dL (9-20) 09/07/21 04:50 Creatinine 0.8 mg/dL (0.8-1.3) 09/07/21 04:50 Estimated GFR > 60 ml/min 09/07/21 04:50 BUN/Creatinine Ratio 24 % 09/07/21 04:50 Glucose 175 mg/dL (75-100) H 09/11/21 08:09 POC Glucose 239 mg/dL (70-105) H 09/13/21 07:39 Hemoglobin A1c 11.1 % (4-6) H 09/05/21 05:04 Calcium 9.2 mg/dL (8.4-10.2) 09/07/21 04:50 Phosphorus 3.50 mg/dL (2.5-4.5) D 09/04/21 23:25 Magnesium 2.00 mg/dL (1.7-2.3) 09/04/21 23:25 Total Bilirubin 0.30 mg/dL (0.1-1.2) 09/07/21 04:50 AST 12 units/L (5-40) 09/07/21 04:50 ALT 79 units/L (7-56) H 09/07/21 04:50 Alkaline Phosphatase 154 units/L (35-129) H 09/07/21 04:50 Total Protein 6.8 g/dL (6.3-8.2) 09/07/21 04:50 Albumin 4.0 g/dL (3.9-5) 09/07/21 04:50 Albumin/Globulin Ratio 1.4 % 09/07/21 04:50 Coronavirus (PCR) Negative (Negative) 09/09/21 Unknown Turpin/IV: Voiding Method Condom Catheter Active Medications - Current Medications Current Medications: Generic Name Dose Route Start Last Admin Trade Name Freq PRN Reason Stop Dose Admin Acetaminophen 650 mg 09/04/21 20:49 Acetaminophen 325 Mg Tab PO Q4H PRN Pain MILD(1-3)/Fever >100.5/WARD Dextrose 50 ml 09/05/21 19:07 09/11/21 05:06 Dextrose 50% In Water (25gm) 50 Ml Syringe IV 50 ml Q30MIN PRN Administration Hypoglycemia Protocol Heparin Sodium (Porcine) 5,000 unit 09/04/21 22:00 09/13/21 09:30 Heparin 5,000 Unit/1 Ml Vial SUB-Q 5,000 unit Q12HR GIL Administration Sodium Chloride 1,000 mls @ 75 mls/hr 09/06/21 12:45 09/09/21 20:28 Nacl 0.9% 1000 Ml IV Infused DIRECT GIL Infusion Insulin Human Isoph/Insulin Regular 35 unit 09/10/21 17:00 09/13/21 09:29 Insulin Nph/Regular 70/30 Inj SUB-Q 35 unit BIDDIAB GIL Administration Insulin Human Lispro 0 unit 09/06/21 07:45 09/13/21 09:28 Insulin Lispro 100 Unit/Ml SUB-Q 4 unit ACHS GIL Administration Protocol Metoclopramide HCl 10 mg 09/04/21 20:49 Metoclopramide 10 Mg/2 Ml Inj IV Q6H PRN Nausea And Vomiting Ondansetron HCl 4 mg 09/04/21 20:49 09/06/21 08:04 Ondansetron 4 Mg/2 Ml Inj IV 4 mg Q3H PRN Administration Nausea And Vomiting Pantoprazole Sodium 40 mg 09/07/21 07:30 09/13/21 09:30 Pantoprazole 40 Mg Tab PO 40 mg QDAC GIL Administration Promethazine HCl 25 mg 09/04/21 20:49 Promethazine 25 Mg Rect Supp [place] Q6H PRN N/V IF NPO AND NO IV ACCESS Sodium Chloride 10 ml 09/04/21 22:00 09/13/21 09:31 Sodium Chloride 0.9% 10 Ml Flush Syringe IV 10 ml BID GIL Administration Sodium Chloride 10 ml 09/04/21 20:49 Sodium Chloride 0.9% 10 Ml Flush Syringe IV PRN PRN LINE FLUSH Nutrition/Malnutrition Assess - Dietary Evaluation Nutrition/Malnutrition Findings: Nutrition Notes Start: 09/05/21 11:46 Freq: Status: Active Protocol: Document 09/05/21 11:46 GB (Rec: 09/05/21 12:10 GB [email or web address]) Nutrition Notes Need for Assessment generated from: MD Order,Education Initial or Follow up Assessment Current Diagnosis Diabetes Other Pertinent Diagnosis DKA, hyperkalemia. PMHx: CVA Current Diet clear liquids Labs/Tests 09/05: glucose 225, BUN 21, Na 136, AST 48, ALT 159, AlkP 164 A1c: 11.1 Pertinent Medications KCl/D5/NaCl 125ml/hr (510kcal) Height 5 ft 4 in Weight 72.575 kg [place] Body Weight (kg) 59.09 BMI 27.4 Weight change and time frame admit weight. No reports of changed weight at admission. Weight Status Overweight Subjective/Other Information MD consult: nutritional recommendations, diet education H/P: missed insulin therapy treatments, lived in [facility] personal care homes, Per EMS glucose >500 RN notes: poor historian Percent of energy/protein needs met: unable to assess current Diet: Clear liquids does not meet 75% or greater of EEN. Burn Absent Trauma Absent GI Symptoms None Food Allergy No Skin Integrity/Comment left ankle ulcer Current % PO Other Minimum of two criteria No #1 Nutrition Diagnosis Food and nutrition-related knowledge deficit Etiology DKA As Evidenced by Signs and Symptoms consult MD for diet education, elevated nutritionally related lab values Is patient on ventilator? No Is Patient Ambulatory and/or Out of Bed Yes REE-([place]-St. Jeor-ambulatory/OOB) [ 2030.275 NUTR.MSJOOB] Kcal/Kg value to use for calculation 24 Approximate Energy Requirements Using 1742 kcal/Kg Calculation Used for Recommendations Kcal/kg Additional Notes Protein: 1-1.2 g/kg @ 73k -88g fluids: 1 ml/kcal or per MD Nutrition Intervention Change Diet Order: Advance to consistent carbohydrate (consistency/ texture per ELIGIBILITY CONSULTANT or bedside swallow eval) Nutrition Support: n/a Add Supplement/Snack (indicate name/kcal n/a /protein ) Education Handouts Provided Review/provide AND: general healthy nutrition education packet with tips for managing DM Goal #1 Diet advanced to consistent carbohydrate by f/u Goal #2 PO intake of meals to be 75% or greater daily for LOS Goal #3 Review/provide AND: general healthy nutrition education packet with tips for managing DM at f/u and/or when admitted to floor Follow-Up By: 09/23/21 Additional Comments F/U: Review/provide AND: general healthy nutrition education packet with tips for managing DM
== END 2021-09-13 12:30 | disposition home or self-care (01) | DRG 637 ==
LOC: ED 14:07 → CC1 16:47 → 3A 09-05 15:06
PROVIDERS: ADMIT Internal Medicine; ATTEND Internal Medicine
DX: E10.10 Type 1 diabetes mellitus with ketoacidosis without coma (principal); L89.893 Pressure ulcer of other site, stage 3; I69.354 Hemiplegia and hemiparesis following cerebral infarction affecting left non-dominant side; Z20.822 Contact with and (suspected) exposure to COVID-19; Z87.891 Personal history of nicotine dependence; E87.5 Hyperkalemia; K29.00 Acute gastritis without bleeding
CPT/HCPCS: 36415; 71045; 80048; 80053; 82805; 82947; 82962; 83036; 83735; 84100; 85014; 85018; 85025; 90732; G0378; Q0177; Q9967; C9113; J1644; J1815; J2405; J7030; U0003